=== PATIENT | female | born 1955 | race Caucasian/White ===

== ENCOUNTER 2019-11-20 09:10 | Emergency (ER) | payer MEDICARE, MEDICAID, SELFPAY ==
[2019-11-20] VITALS (10 sets, daily range): BP systolic 107–143; BP diastolic 43–78; PULSE 69–101; RESP 14–20; TEMP 36.5–37.1; O2SAT 94–98; BMI 21.0
--- NOTE | 2019-11-20 | CT_ITS ---
EXAMINATION: CT ABDOMEN AND PELVIS WITHOUT CONTRAST CLINICAL INFORMATION: Lower abdominal pain, nausea and vomiting, history of Crohn's disease. COMPARISON: CT scan of the abdomen and pelvis dated 11/02/2019. TECHNIQUE: Multidetector volumetric imaging was performed from the superior aspect of the liver through the pubic symphysis. Sagittal and coronal reformatted images were obtained on the technologist's workstation. Lack of intravenous and oral contrast limits visceral evaluation. This CT examination was performed using dose optimization techniques as appropriate, variously including the following: *Automated exposure control *Adjustment of mA and/or kV according to patient size (this includes techniques or standardized protocols for targeted exams where dose is matched to indication/reason for exam; i.e. extremities or head) *Use of iterative reconstruction technique DLP: 339 mGy-cm FINDINGS: LUNG BASES: Moderate elevation of the right hemidiaphragm without significant change. Right basilar linear atelectasis versus scarring posteriorly without significant change. Bibasilar emphysema is unchanged. No significant pleural or pericardial effusions. LIVER, GALLBLADDER, AND BILIARY TREE: No hepatic abnormality. Status post cholecystectomy. PANCREAS: Unremarkable. SPLEEN: Unremarkable. ADRENAL GLANDS: Unremarkable. KIDNEYS AND URETERS: Right kidney shows the previously seen 0.5 cm calculus at the level the right renal pelvis is now positioned at the level of the right inferior calyx. Smaller calculi are not significantly changed. Renal cysts bilaterally, left greater than right are not as well-visualized. Calcification in the upper pole the left kidney is not significantly changed. No hydroureteronephrosis bilaterally. BLADDER: Unremarkable. GASTROINTESTINAL TRACT: The stomach and small bowel unremarkable. Post surgical changes are seen at the ileocolonic anastomosis in the lateral right abdomen without significant change. No evidence for leak or obstruction is seen. The remainder the colon is unremarkable distally to the rectum. ABDOMINAL WALL: Small fat-containing umbilical hernia without interval change. LYMPH NODES: Normal. VASCULAR: Unremarkable. PELVIC VISCERA: Status post hysterectomy. OSSEOUS STRUCTURES: L5-S1 is transitional with partial sacralization of L5, left greater than right. Multilevel degenerative changes, most pronounced at L4-L5 with severe degenerative disc disease. Superior endplate compression deformities at T10, T11 and L2 have not significantly changed. IMPRESSION: 1. No significant acute bowel abnormality or interval change. 2. The previously seen 0.5 cm right intrarenal calculus has migrated from the right renal pelvis to the right inferior calyx without associated abnormality. Other nonobstructing intrarenal calculi/calcifications are not significant change. The patient's known bilateral renal cysts are noted as well-visualized on this study without intravenous contrast. 3. Thoracolumbar spine findings have not significantly changed. No new/acute abnormality. 4. Small fat-containing umbilical hernia without associated abnormality.
--- NOTE | 2019-11-20 | CT_ITS ---
EXAMINATION: CT HEAD WITHOUT CONTRAST CLINICAL INFORMATION: Confusion. COMPARISON: None available. TECHNIQUE: Contiguous axial imaging was performed from the skull base to vertex without intravenous administration of contrast. DLP: 666 mGy-cm This CT examination was performed using dose optimization techniques as appropriate, variously including the following: *Automated exposure control. *Adjustment of mA and/or kV according to patient size (this includes techniques or standardized protocols for targeted exams where dose is matched to indication/reason for exam; i.e. extremities or head). *Use of iterative reconstruction technique. FINDINGS: There is no evidence of acute intracranial hemorrhage or edematous territorial infarction. Mild basal ganglia mineralization. A few foci of hypoattenuation in the periventricular and deep white matter are consistent with mild microangiopathy. Wynn-white matter differentiation is preserved. Proportional prominence of the ventricles and sulcal spaces. No evidence for obstructive hydrocephalus. No abnormal mass effect or midline shift. No extra-axial fluid collections. No acute soft tissue or osseous abnormalities. Moderate degenerative arthropathy of the temporomandibular joints. The mastoid air cells and paranasal sinuses are clear. Bilateral lens extractions. IMPRESSION: 1. No evidence of acute intracranial hemorrhage or edematous territorial infarction. 2. Mild underlying microangiopathy.
--- NOTE | 2019-11-20 09:58 | XR_ITS ---
EXAMINATION: XR CHEST CLINICAL INFORMATION: Cough. COMPARISON: Chest radiographs dated 11/02/[address] scan dated 06/15/2019. TECHNIQUE: Frontal view of the chest was obtained. FINDINGS: There is persistent mild to moderate elevation of the right hemidiaphragm without definite change. The lungs are clear. The heart and mediastinal structures are unremarkable. IMPRESSION: Stable chest. No acute cardiopulmonary process.
--- NOTE | 2019-11-20 09:58 | ECG_ITS ---
Test Reason : ABDOMINAL PAIN Blood Pressure : / mmHG Vent. Rate : 088 BPM Atrial Rate : 088 BPM P-R Int : 116 ms QRS Dur : 082 ms QT Int : 396 ms P-R-T Axes : -21 116 078 degrees QTc Int : 479 ms Poor data quality, interpretation may be adversely affected Normal sinus rhythm Right axis deviation Nonspecific ST abnormality Abnormal ECG When compared with ECG of 02-NOV-2019 13:15, No significant change was found Referred By: Generic ED Physician Electronically Signed By:SHAVON MUNOZ
[2019-11-20] MEDS: ondansetron HCL 4 MG/2 ML VIAL IVPUSH ×3 (10:04→23:15)
[2019-11-20 10:06] LABS: MANUAL DIFF FLAG NO
[2019-11-20 10:08] LABS: Basophils Percent Auto 0.6 % (0-2); Eosinophils Absolute Auto 0.1 X10*3/uL (0.0-0.4); Hematocrit 39.4 % (37-47); Hemoglobin 13.3 g/dl (12.0-16.0); Imm Gran Abs Auto 0.04 X10*3/uL (0.00-0.03); Imm Gran Pct Auto 0.6 % (0.0-0.4); Lymphocytes Percent Auto 16.5 % (20-40); Mean Corpuscular HGB Conc 33.8 g/dl (31.0-35.0); Mean Corpuscular Hemoglobin 33.3 pg (27.0-33.0); Mean Corpuscular Volume 98.7 fL (80-98); Mean Platelet Volume 9.9 fL (9.4-12.3); Monocytes Absolute Auto 0.8 X10*3/uL (0.1-1.2); Monocytes Percent Auto 12.7 % (2-11); Neutrophils Absolute Auto 4.3 X10*3/uL (2.0-8.3); Neutrophils Percent Auto 68.6 % (45-73); Platelet Count 298 X10*3/uL (160-400); Red Blood Count 3.99 X10*6/uL (4.20-5.50); Red Cell Distribution Width 13.3 % (11.0-16.0); White Blood Count 6.3 X10*3/uL (4.8-10.8)
--- NOTE | 2019-11-20 10:38 | PC.NURSE ---
PT ALERT AND ORIENTED X4. SKIN WPD. RESPIRATIONS EVEN AND NON LABORED.REPORTS DIFFUSE ABD PAIN. TENDER OVER LUQ, EPIGATRIC REGION, LLQ, RLQ. ALSO REPORTS FEELING NAUSEOUS AND WEAK. NEUROS INTACT. IV ACCESS OBTAINED AND LABS SENT. VSS. SINUS TACH, LOW 100S ON MONITOR. PT REPORTS FALLING 4 TIMES OVER LAST 4 DAYS; STATES SHE FELL D/T LEGS GAVE OUT. REPORTS EACH FALL WAS WITNESSED BY GRANDDAUGHTER. DENIES HITTING HEAD OR LOC. DENIES ANY INJURIES FROM FALL. AWAITING INTIAL ED EVAL.
[2019-11-20 10:40] LABS: Alanine Aminotransferase 12 U/L (0-31); Albumin Level 3.6 g/dL (3.5-5.0); Alkaline Phosphatase 57 U/L (39-117); Anion Gap 16 (12-20); Aspartate Amino Transferase 25 U/L (5-31); Bilirubin Direct 0.3 mg/dL (0.0-0.5); Bilirubin Total 0.6 mg/dL (0.0-1.0); Blood Urea Nitrogen 21 mg/dL (9-16); Calcium 9.3 mg/dL (8.4-10.2); Carbon Dioxide 26 mmol/L (22-29); Chloride 103 mmol/L (96-108); Creatinine Clr Calc Pharmacy 28.3; Estimated Glomerular Filt Rate 31; Glucose Random 105 mg/dL (60-115); Lipase 22 U/L (8-78); Potassium 3.1 mmol/l (3.3-5.1); Sodium 142 mmol/L (135-145)
[2019-11-20 10:47] LABS: Troponin-I High Sensitivity 5.3 ng/L (<3.5-17.0)
[2019-11-20 10:48] LABS: MANUAL DIFF FLAG NO
[2019-11-20 10:51] LABS: Basophils Absolute Auto 0.1 X10*3/uL (0.0-0.2); Basophils Percent Auto 0.7 % (0-2); Eosinophils Absolute Auto 0.1 X10*3/uL (0.0-0.4); Eosinophils Percent Auto 0.7 % (0-4); Hematocrit 38.7 % (37-47); Hemoglobin 12.7 g/dl (12.0-16.0); Imm Gran Abs Auto 0.03 X10*3/uL (0.00-0.03); Imm Gran Pct Auto 0.4 % (0.0-0.4); Lymphocytes Absolute Auto 1.2 X10*3/uL (1.2-4.9); Lymphocytes Percent Auto 16.6 % (20-40); Mean Corpuscular HGB Conc 32.8 g/dl (31.0-35.0); Mean Corpuscular Hemoglobin 32.3 pg (27.0-33.0); Mean Corpuscular Volume 98.5 fL (80-98); Mean Platelet Volume 9.6 fL (9.4-12.3); Monocytes Absolute Auto 0.9 X10*3/uL (0.1-1.2); Neutrophils Percent Auto 69.6 % (45-73); Platelet Count 283 X10*3/uL (160-400); Red Blood Count 3.93 X10*6/uL (4.20-5.50); Red Cell Distribution Width 13.4 % (11.0-16.0); White Blood Count 7.2 X10*3/uL (4.8-10.8)
--- NOTE | 2019-11-20 11:58 | ED_ITS ---
HPI - Nausea/Vomiting/Diarrhea General Chief complaint: Nausea/Vomiting/Diarrhea Stated complaint: NAUSEA/VOMITING/CHILLS X'S 2 DAYS,RECENT -COVID RE Time Seen by Provider: 11/20/19 11:43 Source: patient and family History of Present Illness HPI Narrative: 64-year-old female with a PMHx Crohn's, colitis, COPD, emphysema, osteoporosis, Stenotrophomonas maltophilia c/o nausea, vomiting, diarrhea, diffuse abdominal discomfort, poor p.o. intake, generalized weakness x4 days. Also reports multiple falls at home on Wednesday due to legs giving out. Denies head trauma or LOC. Patient lives with granddaughter who helped get her up. Per granddaughter patient has been more confused at home, did not know who she was. Denies CP, SOB, constipation, fever, chills MD elicited complaint: nausea, vomiting, diarrhea and abdominal pain Pertinent past history: anorexia Onset (ago): day(s) (4) Associated nausea: Yes Associated abdominal pain: Yes Location of pain: diffuse Severity: moderate Quality: cramping Exacerbating factors: eating Associated symptoms: nausea/vomiting Related Data Home Medications Medication Instructions Recorded Confirmed azathioprine 50 mg tablet 100 mg PO DAILY 11/14/19 11/14/19 azithromycin 500 mg tablet 500 mg PO DAILY 11/14/19 11/14/19 budesonide 3 mg 9 mg PO DAILY 11/14/19 11/14/19 capsule,delayed,extended release cefuroxime axetil 500 mg tablet 500 mg PO Q12H 11/14/19 11/14/19 ciprofloxacin HCl 500 mg tablet 500 mg PO BID 11/14/19 11/14/19 citalopram 20 mg tablet 20 mg PO DAILY 11/14/19 11/14/19 clonazepam 1 mg tablet 1 mg PO TID PRN 11/14/19 11/14/19 cyanocobalamin (vitamin B-12) 1,000 mcg IM 11/14/19 11/14/19 1,000 mcg/mL injection solution gabapentin 300 mg capsule mg PO PRN 11/14/19 11/14/19 glycopyrrolate 9 mcg-formoterol 2 puff INHALATION BID 11/14/19 11/14/19 4.8 mcg HFA aerosol inhaler metoprolol succinate 100 mg 100 mg PO BID 11/14/19 11/14/19 tablet,extended release 24 hr niacinamide 500 mg tablet 500 mg PO BID 11/14/19 11/14/19 omeprazole 20 mg capsule,delayed 20 mg PO DAILY 11/14/19 11/14/19 release ondansetron 8 mg disintegrating 8 mg PO TID 11/14/19 11/14/19 tablet oxycodone 15 mg tablet 15 mg PO QID PRN 11/14/19 11/14/19 trazodone 50 mg tablet 50 mg PO BEDTIME 11/14/19 11/14/19 Allergies Allergy/AdvReac Type Severity Reaction Status Date / Time furosemide [From LASIX] Allergy Intermediate SWEATING Verified 11/20/19 09:15 lorazepam [LORAZEPAM] Allergy Intermediate RESTLESS Verified 11/20/19 09:15 LEG prochlorperazine Allergy Intermediate RESTLESS Verified 11/20/19 09:15 [From COMPAZINE] LEG Sulfa (Sulfonamide Allergy Unknown UNK Verified 11/20/19 09:15 Antibiotics) [SULFA (SULFONAMIDE ANTIBIOTICS)] Sulfa Drugs Allergy Unknown Unknown Uncoded 11/20/19 09:15 Review of Systems Review of Systems: Yes all other systems are reviewed and are negative Constitutional: Constitutional: Reports as per HPI, Reports chills, Denies fever(s), Reports frequent falls, Denies headache(s), Reports malaise and Reports weakness Eyes: Eyes: Reports as per HPI ENT: Reports system reviewed and no additional complaints, except as documented, Reports as per HPI and Denies headache(s) Cardiovascular: Cardiovascular: Denies syncope, Denies Loss of Consciousness and Denies dyspnea Respiratory: Respiratory: Reports cough (chronic) and Denies dyspnea Gastrointestinal: Gastrointestinal: Reports abdominal pain, Denies constipation, Reports GI cramping, Reports diarrhea, Reports nausea and Reports vomiting Genitourinary: Genitourinary: Denies dysuria Musculoskeletal: Musculoskeletal: Denies numbness and Denies tingling Neurologic: Reports Abnormal speech present, Denies syncope, Reports frequent falls, Denies headache(s), Denies numbness, Denies tingling and Reports weakness PMFSH Past Medical History Attestation statement: The following information was validated with the patient. Medical History (Updated 11/20/19 @ 16:30 by KARLENE Campbell) Acute Crohn's disease Colitis COPD (chronic obstructive pulmonary disease) Emphysema of lung Infection due to Stenotrophomonas maltophilia Osteoporosis Surgical History (Updated 11/20/19 @ 09:29 by Mellissa Fernandez) History of bowel resection Hx of cholecystectomy S/P complete hysterectomy Social History Social History Smoking Status: Former smoker Substance Use Type: Marijuana Substance Use Frequency: Weekly Advance Directives: No Advance Directives Information Provided: Yes Physical Exam Vital Signs and I&O and Narrative: Vital Signs and I&O: Vital Signs Temp 98.5 F 11/20/19 16:00 Pulse 79 11/20/19 16:00 Resp 15 11/20/19 16:00 BP 119/58 L 11/20/19 16:00 Pulse Ox 94 11/20/19 16:00 Intake & Output 11/19/19 11/20/19 11/20/19 18:59 06:59 18:59 Intake Total 1000 / 1000 Balance 1000 / 1000 Weight 53.977 kg Intake: Intake, IV Amoun t 1000 / 1000 0.9 % Sodium C hloride 1,000 ml 1000 / 1000 @ 999 mls/hr I VCONT .Q1H1M [facility] Rx#:[id number] Body Mass Index 21.0 Const: General: cooperative and no acute distress Orientation/consciousness: patient oriented x3 HENMT: Head: Yes normal to inspection Eyes: General: appearance normal, both eyes and all related structures Pupils: Equal, round and reactive pupils present EOM: EOMs intact bilaterally Neck: Neck: Yes normal visual inspection Chest: Chest palpation & inspection: normal inspection of the chest Resp: Effort & Inspection: normal respiratory effort, no audible wheezes, no cough, not labored, no respiratory distress and no use of accessory muscles Auscultation: clear to auscultation bilaterally, no crackles, no rales and no rh onchi Cardio: Jugular venous distension: no JVD Rate: regular rate Rhythm: regular rhythm Heart sounds: S1 normal heart sound present and S2 normal heart sound present GI: Inspection: Yes normal to inspection Palpation (GI): Soft to palpation and Tenderness to palpation present (GI) (lower abdomen) Neuro: General: patient oriented x3 Cranial nerves: Yes CN's II-XII intact bilaterally and Yes Equal, round and reactive pupils present Cognition (Neuro): normal cognition Speech: Abnormal speech present Motor exam (neuro): 5/5 motor strength present throughout Pupils: Normal pupillary reactivity/response: bilateral Course Reevaluation(s) Reevaluation #1: HERVE creatinine 1.66, potassium slightly low 3.1 > likely from dehydration/ dry heaving Troponin 5.3> will obtain for repeat 1249-- CXR unreamrkable 1611-- head CT without acute findings, CT AP without acute abnormality plan to admit for dehydration/HERVE and PT eval 1716-- spoke to hospitalist about patient. They would like repeat Chem 7 prior to admission. If HERVE resolved will obtain PT/case management consult MDM - Nausea/Vomiting/Diarrhea MDM Narrative Medical decision making narrative: 64-year-old female with a PMHx Crohn's, colitis, COPD, emphysema, osteoporosis, Stenotrophomonas maltophilia c/o nausea, vomiting, diarrhea, diffuse abdominal discomfort, poor p.o. intake, generalized weakness x4 days. On exam VSS, NAD/well-appearing, abdomen soft diffusely tender. Dry mucous membranes. Concern for SBO/colitis vs diverticulitis or appendicitis. Concern for dehydration. Rule out infectious etiology. R/o subacute CVA although patient A&O x3 and neurologically intact at present plan: EKG, labs, CXR, UA, head/ AP CT, IVF, admission Lab Data Result diagrams: 11/20/19 10:44 11/20/19 09:53 Labs: Lab Results 11/20/19 11/20/19 11/20/19 Range/Units 09:53 09:53 10:04 WBC 6.3 (4.8-10.8) X10*3/uL RBC 3.99 L (4.20-5.50) X10*6/uL Hgb 13.3 (12.0-16.0) g/dl Hct 39.4 (37-47) % MCV 98.7 H (80-98) fL MCH 33.3 H (27.0-33.0) pg MCHC 33.8 (31.0-35.0) g/dl RDW 13.3 (11.0-16.0) % Plt Count 298 (160-400) X10*3/uL MPV 9.9 (9.4-12.3) fL Immature Gran % (Auto) 0.6 H (0.0-0.4) % Neut % (Auto) 68.6 (45-73) % Lymph % (Auto) 16.5 L (20-40) % [place] % (Auto) 12.7 H (2-11) % Eos % (Auto) 1.0 (0-4) % Baso % (Auto) 0.6 (0-2) % Neut # (Auto) 4.3 (2.0-8.3) X10*3/uL Lymph # (Auto) 1.0 L (1.2-4.9) X10*3/uL [place] # (Auto) 0.8 (0.1-1.2) X10*3/uL Eos # (Auto) 0.1 (0.0-0.4) X10*3/uL Baso # (Auto) 0.0 (0.0-0.2) X10*3/uL Abs Immat Gran (auto) 0.04 H (0.00-0.03) X10*3/uL Absolute Nucleated RBC 0.000 (0.0-0.012) X10*3/uL Nucleated RBC % (auto) 0.0 (0.0-0.2) /100WBC Hold Blue Top SEE NOTE Sodium 142 (135-145) mmol/L Potassium 3.1 L (3.3-5.1) mmol/l Chloride 103 (96-108) mmol/L Carbon Dioxide 26 (22-29) mmol/L Anion Gap 16 (12-20) BUN 21 H (9-16) mg/dL Creatinine 1.66 H (0.5-1.4) mg/dL Estim Creat Clear Calc 28.3 Estimated GFR 31 Random Glucose 105 (60-115) mg/dL Calcium 9.3 (8.4-10.2) mg/dL Magnesium (1.6-2.6) mg/dL Total Bilirubin 0.6 (0.0-1.0) mg/dL Direct Bilirubin 0.3 (0.0-0.5) mg/dL AST 25 (5-31) U/L ALT 12 (0-31) U/L Alkaline Phosphatase 57 (39-117) U/L Troponin I High Sens (<3.5-17.0) ng/L Total Protein 6.0 L (6.5-8.0) g/dL Albumin 3.6 (3.5-5.0) g/dL Lipase 22 (8-78) U/L Urine Color Urine Appearance Urine pH (5.0-8.0) Ur Specific [place] (1.005-1.025) Urine Protein (NEG-TRACE) MG/DL Urine Glucose (UA) (NEG) MG/DL Urine Ketones (NEG) MG/DL Urine Blood (NEG) Urine Nitrite (NEG) Ur Leukocyte Esterase (NEG) 11/20/19 11/20/19 11/20/19 Range/Units 10:04 10:44 12:45 WBC 7.2 (4.8-10.8) X10*3/uL RBC 3.93 L (4.20-5.50) X10*6/uL Hgb 12.7 (12.0-16.0) g/dl Hct 38.7 (37-47) % MCV 98.5 H (80-98) fL MCH 32.3 (27.0-33.0) pg MCHC 32.8 (31.0-35.0) g/dl RDW 13.4 (11.0-16.0) % Plt Count 283 (160-400) X10*3/uL MPV 9.6 (9.4-12.3) fL Immature Gran % (Auto) 0.4 (0.0-0.4) % Neut % (Auto) 69.6 (45-73) % Lymph % (Auto) 16.6 L (20-40) % [place] % (Auto) 12.0 H (2-11) % Eos % (Auto) 0.7 (0-4) % Baso % (Auto) 0.7 (0-2) % Neut # (Auto) 5.0 (2.0-8.3) X10*3/uL Lymph # (Auto) 1.2 (1.2-4.9) X10*3/uL [place] # (Auto) 0.9 (0.1-1.2) X10*3/uL Eos # (Auto) 0.1 (0.0-0.4) X10*3/uL Baso # (Auto) 0.1 (0.0-0.2) X10*3/uL Abs Immat Gran (auto) 0.03 (0.00-0.03) X10*3/uL Absolute Nucleated RBC 0.000 (0.0-0.012) X10*3/uL Nucleated RBC % (auto) 0.0 (0.0-0.2) /100WBC Hold Blue Top Sodium (135-145) mmol/L Potassium (3.3-5.1) mmol/l Chloride (96-108) mmol/L Carbon Dioxide (22-29) mmol/L Anion Gap (12-20) BUN (9-16) mg/dL Creatinine (0.5-1.4) mg/dL Estim Creat Clear Calc Estimated GFR Random Glucose (60-115) mg/dL Calcium (8.4-10.2) mg/dL Magnesium (1.6-2.6) mg/dL Total Bilirubin (0.0-1.0) mg/dL Direct Bilirubin (0.0-0.5) mg/dL AST (5-31) U/L ALT (0-31) U/L Alkaline Phosphatase (39-117) U/L Troponin I High Sens 5.3 4.5 (<3.5-17.0) ng/L Total Protein (6.5-8.0) g/dL Albumin (3.5-5.0) g/dL Lipase (8-78) U/L Urine Color Urine Appearance Urine pH (5.0-8.0) Ur Specific [place] (1.005-1.025) Urine Protein (NEG-TRACE) MG/DL Urine Glucose (UA) (NEG) MG/DL Urine Ketones (NEG) MG/DL Urine Blood (NEG) Urine Nitrite (NEG) Ur Leukocyte Esterase (NEG) 11/20/19 11/20/19 Range/Units 12:45 12:45 WBC (4.8-10.8) X10*3/uL RBC (4.20-5.50) X10*6/uL Hgb (12.0-16.0) g/dl Hct (37-47) % MCV (80-98) fL MCH (27.0-33.0) pg MCHC (31.0-35.0) g/dl RDW (11.0-16.0) % Plt Count (160-400) X10*3/uL MPV (9.4-12.3) fL Immature Gran % (Auto) (0.0-0.4) % Neut % (Auto) (45-73) % Lymph % (Auto) (20-40) % [place] % (Auto) (2-11) % Eos % (Auto) (0-4) % Baso % (Auto) (0-2) % Neut # (Auto) (2.0-8.3) X10*3/uL Lymph # (Auto) (1.2-4.9) X10*3/uL [place] # (Auto) (0.1-1.2) X10*3/uL Eos # (Auto) (0.0-0.4) X10*3/uL Baso # (Auto) (0.0-0.2) X10*3/uL Abs Immat Gran (auto) (0.00-0.03) X10*3/uL Absolute Nucleated RBC (0.0-0.012) X10*3/uL Nucleated RBC % (auto) (0.0-0.2) /100WBC Hold Blue Top Sodium (135-145) mmol/L Potassium (3.3-5.1) mmol/l Chloride (96-108) mmol/L Carbon Dioxide (22-29) mmol/L Anion Gap (12-20) BUN (9-16) mg/dL Creatinine (0.5-1.4) mg/dL Estim Creat Clear Calc Estimated GFR Random Glucose (60-115) mg/dL Calcium (8.4-10.2) mg/dL Magnesium 1.6 (1.6-2.6) mg/dL Total Bilirubin (0.0-1.0) mg/dL Direct Bilirubin (0.0-0.5) mg/dL AST (5-31) U/L ALT (0-31) U/L Alkaline Phosphatase (39-117) U/L Troponin I High Sens (<3.5-17.0) ng/L Total Protein (6.5-8.0) g/dL Albumin (3.5-5.0) g/dL Lipase (8-78) U/L Urine Color YELLOW Urine Appearance HAZY Urine pH 6.0 (5.0-8.0) Ur Specific [place] >= 1.030 H (1.005-1.025) Urine Protein TRACE (NEG-TRACE) MG/DL Urine Glucose (UA) NEG (NEG) MG/DL Urine Ketones 15 (NEG) MG/DL Urine Blood NEG (NEG) Urine Nitrite NEG (NEG) Ur Leukocyte Esterase NEG (NEG) Discharge Plan Discharge Clinical Impression: HERVE (acute kidney injury), Acute dehydration Prescriptions: No Action citalopram 20 mg tablet 20 mg PO DAILY RF: 0 ondansetron 8 mg tablet,disintegrating 8 mg PO TID RF: 0 gabapentin 300 mg capsule PO PRNRF: 0 cefuroxime axetil 500 mg tablet 500 mg PO Q12H RF: 0 omeprazole 20 mg capsule,delayed release(DR/EC) 20 mg PO DAILY RF: 0 cyanocobalamin (vitamin B-12) 1,000 mcg/mL solution 1,000 mcg IM RF: 0 trazodone 50 mg tablet 50 mg PO BEDTIME RF: 0 ciprofloxacin HCl 500 mg tablet 500 mg PO BID RF: 0 oxycodone 15 mg tablet 15 mg PO QID PRNRF: 0 clonazepam 1 mg tablet 1 mg PO TID PRN (Reason: anxiety) RF: 0 Bevespi Aerosphere 9-4.8 mcg HFA aerosol inhaler 2 puff inhalation BID RF: 0 niacinamide 500 mg tablet 500 mg PO BID RF: 0 azithromycin 500 mg tablet 500 mg PO DAILY RF: 0 azathioprine 50 mg tablet 100 mg PO DAILY RF: 0 budesonide 3 mg capsule,delayed,extend.release 9 mg PO DAILY RF: 0 metoprolol succinate 100 mg tablet extended release 24 hr 100 mg PO BID RF: 0
--- NOTE | 2019-11-20 12:05 | PC.NURSE ---
primary critical care nurse/granddaughter, Lizz to be called with questions and updates at [phone]
--- NOTE | 2019-11-20 12:20 | PC.NURSE ---
per pt's granddaughter, leonard, pt has had multiple episodes of severe confusion during which she couldn't recall where she was and was recalling conversations that never occured. neuros currently intact. hernesto kahn made aware of confusion; plan for head ct. yasmine also states pt recently diagnosed with uti and unsure if pt has been taking meds as prescribed. urine sample to be sent when obtained.
[2019-11-20 13:19] LABS: Magnesium 1.6 mg/dL (1.6-2.6)
[2019-11-20 13:24] LABS: Glucose Urine UA NEG (NEG); Leukocyte Esterase Urine NEG (NEG); Nitrite Urine NEG (NEG); Specific Gravity - Urine >= 1.030 (1.005-1.025); Urine Blood NEG (NEG); Urine Ketones 15 MG/DL (NEG); Urine Protein TRACE MG/DL (NEG-TRACE)
[2019-11-20 13:26] LABS: Troponin-I High Sensitivity 4.5 ng/L (<3.5-17.0)
[2019-11-20 13:28] LABS: Appearance Urine HAZY; Color Urine YELLOW
[2019-11-20] MEDS: 0.9 % Sodium Chloride 1,000 ML 999 ML IVCONT ×2 (13:29→16:57)
[2019-11-20] MEDS: diphenhydrAMINE HCL 50 MG/ML VIAL 12.5 MG IVPUSH (13:30)
[2019-11-20] MEDS: oxyCODONE HCl Immed Release 5 MG TABLET PO (16:57)
[2019-11-20 18:35] LABS: Anion Gap 14 (12-20); Blood Urea Nitrogen 19 mg/dL (9-16); Calcium 8.3 mg/dL (8.4-10.2); Carbon Dioxide 23 mmol/L (22-29); Chloride 108 mmol/L (96-108); Creatinine Clr Calc Pharmacy 39.8; Estimated Glomerular Filt Rate 46; Glucose Random 88 mg/dL (60-115); Potassium 2.8 mmol/l (3.3-5.1); Sodium 142 mmol/L (135-145)
--- NOTE | 2019-11-20 19:17 | PC.NURSE ---
Patient will stay overnight for case management. Called pharmacy for med rec.
[2019-11-20] MEDS: Magnesium Oxide 400 MG TABLET PO (21:53)
[2019-11-20] MEDS: traZODone HCL 50 MG TABLET PO (21:54)
[2019-11-20] MEDS: Gabapentin 300 MG CAPSULE 900 MG PO (21:54)
[2019-11-20] MEDS: Metoprolol Succinate ER 100 MG TAB.ER.24H PO (21:55)
[2019-11-20] MEDS: oxyCODONE HCl Immed Release 15 MG TABLET PO (22:09)
[2019-11-20] MEDS: Potassium Chloride/H20 10 MEQ/100 ML PIGGYBACK 100 MEQ IV (23:59)
[2019-11-21] MEDS: Potassium Chloride/H20 10 MEQ/100 ML PIGGYBACK 100 MEQ IV ×2 (01:45→03:23)
[2019-11-21 01:46] VITALS: BP 116/79; PULSE 71; RESP 15; TEMP 36.7; O2SAT 93
[2019-11-21 04:00] VITALS: BP 111/60; PULSE 71; RESP 13; TEMP 36.6; O2SAT 94
[2019-11-21] MEDS: oxyCODONE HCl Immed Release 15 MG TABLET PO ×2 (04:33→10:33)
[2019-11-21] MEDS: clonazePAM 1 MG TABLET PO (04:34)
[2019-11-21 06:10] VITALS: BP 114/50; PULSE 71; RESP 12; O2SAT 92
[2019-11-21 07:42] VITALS: BP 114/50; PULSE 71; O2SAT 92
[2019-11-21 08:15] VITALS: BP 102/60; PULSE 75; RESP 16; TEMP 36.9; O2SAT 94
[2019-11-21 08:18] VITALS: BP 102/60; PULSE 71
[2019-11-21] MEDS: Metoprolol Succinate ER 100 MG TAB.ER.24H PO (08:18)
[2019-11-21] MEDS: Gabapentin 300 MG CAPSULE 600 MG PO (08:19)
[2019-11-21] MEDS: Potassium Chloride ER 20 MEQ TAB.ER.PRT PO (08:19)
[2019-11-21] MEDS: Escitalopram Oxalate 10 MG TABLET PO (08:19)
[2019-11-21] MEDS: Aspirin Enteric Coated 81 MG TABLET.DR PO (08:19)
[2019-11-21] MEDS: Magnesium Oxide 400 MG TABLET PO (08:19)
[2019-11-21 08:41] LABS: Anion Gap 12 (12-20); Blood Urea Nitrogen 17 mg/dL (9-16); Calcium 8.5 mg/dL (8.4-10.2); Carbon Dioxide 24 mmol/L (22-29); Chloride 111 mmol/L (96-108); Estimated Glomerular Filt Rate 59; Glucose Random 89 mg/dL (60-115); Potassium 3.5 mmol/l (3.3-5.1); Sodium 143 mmol/L (135-145)
[2019-11-21] MEDS: azaTHIOprine 50 MG TABLET 100 MG PO (08:44)
[2019-11-21] MEDS: Calcitonin,Salmon,Synth Nasal 3.7 ML BOTTLE 1 SPRAY NOSTRIL-B (08:44)
--- NOTE | 2019-11-21 11:07 | MHC.CM.ED ---
per pt's request a ref. has been made to [facility]. pt is being dc'd home c [facility] for nsg and home pt. rn and md in the e.d. are aware of this dc plan. cm to cont. to follow
== END 2019-11-21 10:44 | disposition home or self-care (01) ==
PROVIDERS: Physician Assistant; Student in an Organized Health Care Education/Training Program; Emergency Provider Physician Assistant Medical; PCP Internal Medicine
DX: N17.9 Acute kidney failure, unspecified (principal); E86.0 Dehydration; R11.2 Nausea with vomiting, unspecified; F12.90 Cannabis use, unspecified, uncomplicated; Z87.891 Personal history of nicotine dependence; Z79.899 Other long term (current) drug therapy
CPT/HCPCS: 36415; 70450; 71045; 74176; 80048; 80076; 81003; 83690; 83735; 84484; 85025; 93005; 93010; 96361; 96365; 96366; 96375; 96376; 97162; 99285; J1200; J2405

== ENCOUNTER → 2019-12-07 11:30 | Outpatient (BNVA) | payer MEDICARE, MEDICAID, SELFPAY | PROVIDERS: PCP Internal Medicine; Visit Provider Hospitalist | DX: J44.9 Chronic obstructive pulmonary disease, unspecified (principal); G47.33 Obstructive sleep apnea (adult) (pediatric); K52.9 Noninfective gastroenteritis and colitis, unspecified; Z99.89 Dependence on other enabling machines and devices | CPT/HCPCS: 99214 ==

== ENCOUNTER → 2020-06-17 13:54 | Outpatient (BNVA) | payer MEDICARE, MEDICAID, SELFPAY | PROVIDERS: PCP Internal Medicine; Visit Provider Hospitalist | DX: J41.8 Mixed simple and mucopurulent chronic bronchitis (principal); J96.11 Chronic respiratory failure with hypoxia; G47.33 Obstructive sleep apnea (adult) (pediatric); Z99.89 Dependence on other enabling machines and devices | CPT/HCPCS: 96372; 99212; J2930 ==

== ENCOUNTER 2020-07-09 08:50 | Outpatient (REF) | payer MEDICARE, MEDICAID, SELFPAY ==
--- NOTE | 2020-07-09 13:46 | PFT_ITS ---
INDICATION: Chronic bronchitis. SPIROMETRY: The FEV1 to FVC of 75% with an FEV1 of 1.51 L, which is 65% predicted, and an FVC of 2.03 L, which is 66% predicted. No significant response to bronchodilators noted. The patient does have evidence of small airways disease. Maximum voluntary ventilation 53% predicted. LUNG VOLUMES: Total lung capacity 75% predicted. Expiratory reserve volume is decreased to 13% predicted. DIFFUSION CAPACITY: DLCO 30% predicted. COMPARISONS: None. INTERPRETATION: There is a restrictive ventilatory defect consistent with restrictive lung disease. The patient does have evidence of emphysema, although she does not have a definitive obstruction on spirometry. The fact that she has a restrictive component is likely masking the obstructive process that she also has. In addition to that, she does have severe diffusion impairment secondary to underlying pulmonary vascular disease and parenchymal lung conditions. Should also correct for hemoglobin. Clinical correlation warranted. pEi Leiva MD MR/MODL / [id number]
== END 2020-07-09 08:51 | disposition home or self-care (01) ==
LOC: HO.RESP 08:50
PROVIDERS: PCP Internal Medicine; Visit Provider Hospitalist
DX: J41.8 Mixed simple and mucopurulent chronic bronchitis (principal); J96.11 Chronic respiratory failure with hypoxia; J98.4 Other disorders of lung
CPT/HCPCS: 94060; 94727; 94729; 99212

== ENCOUNTER → 2020-10-15 09:36 | Outpatient (BNVA) | payer MEDICARE, MEDICAID, SELFPAY | PROVIDERS: PCP Internal Medicine; Visit Provider Hospitalist | DX: Z01.811 Encounter for preprocedural respiratory examination (principal); J96.11 Chronic respiratory failure with hypoxia; G47.33 Obstructive sleep apnea (adult) (pediatric); J41.8 Mixed simple and mucopurulent chronic bronchitis; R13.10 Dysphagia, unspecified; Z79.899 Other long term (current) drug therapy; Z99.89 Dependence on other enabling machines and devices | CPT/HCPCS: 99212 ==

== ENCOUNTER → 2021-03-11 09:00 | Outpatient (BNVA) | payer MEDICARE, MEDICAID, SELFPAY | PROVIDERS: PCP Internal Medicine; Visit Provider Hospitalist | DX: Z01.811 Encounter for preprocedural respiratory examination (principal); J41.8 Mixed simple and mucopurulent chronic bronchitis; J96.11 Chronic respiratory failure with hypoxia; J98.4 Other disorders of lung; G47.33 Obstructive sleep apnea (adult) (pediatric); R13.10 Dysphagia, unspecified; Z99.89 Dependence on other enabling machines and devices | CPT/HCPCS: 99212 ==

== ENCOUNTER → 2021-08-11 10:22 | Outpatient (BNVA) | payer MEDICARE, MEDICAID, SELFPAY | PROVIDERS: PCP Internal Medicine; Visit Provider Hospitalist | DX: J98.4 Other disorders of lung (principal); J96.11 Chronic respiratory failure with hypoxia; G47.33 Obstructive sleep apnea (adult) (pediatric); J41.8 Mixed simple and mucopurulent chronic bronchitis; R13.10 Dysphagia, unspecified; Z99.89 Dependence on other enabling machines and devices | CPT/HCPCS: 99212 ==

== ENCOUNTER → 2022-04-15 10:13 | Outpatient (BNVA) | payer MEDICARE, MEDICAID, SELFPAY | PROVIDERS: PCP Student in an Organized Health Care Education/Training Program; Visit Provider Hospitalist | DX: J98.4 Other disorders of lung (principal); J96.11 Chronic respiratory failure with hypoxia; G47.33 Obstructive sleep apnea (adult) (pediatric); Z99.89 Dependence on other enabling machines and devices | CPT/HCPCS: 99212 ==

== ENCOUNTER 2022-07-03 21:25 | Inpatient (IN) | payer MEDICARE, MEDICAID, SELFPAY ==
[2022-07-03] VITALS (10 sets, daily range): BP systolic 116–218; BP diastolic 68–124; PULSE 90–112; RESP 15–33; TEMP 32–36.6; O2SAT 96–100; BMI 20.8; BMI 18.9
--- NOTE | ~2022-07-03 | CT_ITS ---
EXAMINATION: CT HEAD WITHOUT CONTRAST CT CERVICAL SPINE WITHOUT CONTRAST CLINICAL INFORMATION: Head injury. Trauma. COMPARISON: CT head from 11/20/2019. TECHNIQUE: Contiguous axial imaging was performed from the skull base to vertex without intravenous administration of contrast. Contiguous axial imaging was performed from the upper chest through the skull base without intravenous administration of contrast. Coronal and sagittal reformats were obtained at the acquisition workstation. This CT examination was performed using dose optimization techniques as appropriate, variously including the following: *Automated exposure control. *Adjustment of mA and/or kV according to patient size (this includes techniques or standardized protocols for targeted exams where dose is matched to indication/reason for exam; i.e. extremities or head). *Use of iterative reconstruction technique. DLP: 1000 mGy-cm FINDINGS: Head: There is no evidence of acute intracranial hemorrhage or edematous territorial infarction. Wynn-white matter differentiation is preserved. Scattered foci of hypoattenuation in the periventricular and deep white matter are consistent with mild to moderate microangiopathy. Proportional prominence of the ventricles and sulcal spaces without evidence of obstructive hydrocephalus. No abnormal mass effect or midline shift. No extra-axial fluid collections. The patient is intubated with orogastric tube in place. The orogastric tube is coiled within the pharynx. No acute soft tissue or osseous abnormalities. Layering fluid within the pharynx, presumably related to intubation. Mild mucosal thickening of the paranasal sinuses. The mastoid air cells and middle ear cavities are clear. Advanced right-sided and moderate left-sided degenerative arthropathy of the temporomandibular joints. Bilateral lens extractions. Cervical Spine: The atlantooccipital and atlantoaxial articulations remain well aligned. Moderate degenerative stepwise retrolisthesis of C3-C7. No evidence of acute fracture or subluxation. The vertebral body heights are maintained. Advanced degenerative disc disease from C3-T1 with associated disc-osteophyte complex formation. There appears to be at least mild spinal canal stenoses from C3-C7. Facet and uncovertebral joint arthropathy leads to osseous encroachment on the neural foramina from C3-T1. There is no prevertebral soft tissue swelling. The thyroid gland and remaining cervical soft tissues are within normal limits. Moderate centrilobular emphysema. No additional demonstrated abnormalities of the visualized lung apices.. CT/CT cervical spine wo IV con IMPRESSION: 1. No evidence of acute intracranial hemorrhage or edematous territorial infarction. Mild to moderate underlying microangiopathy and generalized cerebral volume loss. 2. No evidence of acute fracture or traumatic subluxation of the cervical spine. Advanced multilevel degenerative spondyloarthropathy of the cervical spine. Most notably on this limited exam without intrathecal contrast, there appears to be at least mild spinal canal stenoses from C3-C7.
--- NOTE | ~2022-07-03 | XR_ITS ---
EXAMINATION: XR KNEE, LEFT CLINICAL INFORMATION: Fall. COMPARISON: None available. TECHNIQUE: Four views of the left knee. FINDINGS: Bones and soft tissues are normal. No fracture or joint effusion. Alignment is anatomic. Joint spaces are well maintained. No abnormal soft tissue calcification. XR/XR knee LT 3V IMPRESSION: No acute fracture or dislocation.
--- NOTE | ~2022-07-03 | XR_ITS ---
EXAMINATION: XR CHEST CLINICAL INFORMATION: Post intubation COMPARISON: 11.20.2019 TECHNIQUE: Frontal view of the chest was obtained. FINDINGS: Endotracheal tube terminates 4.1 cm above the monica. Enteric tube courses through the stomach. Normal symmetric lung volumes. No parenchymal consolidation. No pleural effusion. No pneumothorax. Cardiomediastinal silhouette and pulmonary vascularity are within normal limits. No acute osseous abnormalities. XR/XR chest 1V IMPRESSION: Endotracheal tube terminates 4.1 cm above the monica.
--- NOTE | ~2022-07-03 | CT_ITS ---
EXAMINATION CT CHEST, ABDOMEN AND PELVIS WITHOUT CONTRAST CLINICAL INFORMATION: Trauma COMPARISON: CT abdomen/pelvis dated 11/20/2019 CT chest dated 06/15/2019 TECHNIQUE: Multidetector volumetric CT imaging of the chest, abdomen and pelvis was obtained without use of intravenous contrast. Coronal and sagittal reformats were reviewed. This CT examination was performed using dose optimization techniques as appropriate, variously including the following: *Automated exposure control *Adjustment of mA and/or kV according to patient size (this includes techniques or standardized protocols for targeted exams where dose is matched to indication/reason for exam; i.e. extremities or head) *Use of iterative reconstruction technique DLP: 225 mGy-cm. FINDINGS: CHEST LUNGS/PLEURA: Moderate emphysema. Basilar subsegmental atelectasis. No parenchymal consolidation. No pneumothorax. There is no pleural effusion. No pleural mass or thickening. Endotracheal tube terminates in the mid thoracic trachea. MEDIASTINUM/CORY: Normal heart size. No pericardial effusion. Great vessels normal caliber. Triple vessel coronary calcifications. CHEST WALL/AXILLA: Unremarkable. ABDOMEN/PELVIS HEPATOBILIARY: Liver normal in size, contour and morphology. No suspicious lesions. No intra or extrahepatic biliary dilation. Cholecystectomy. PANCREAS: Unremarkable. SPLEEN: Unremarkable. ADRENAL GLANDS: Unremarkable. KIDNEYS, URETERS AND BLADDER: Kidneys normal in size, axis and. Simple cysts in the left kidney are benign. No follow-up imaging recommended. No hydronephrosis. Stable 5 mm calculus in the right renal pelvis and 4 mm nonobstructive calculus in the lower pole of the right kidney. Punctate nonobstructive calculus in the anterior interpolar region of the left kidney. Ureters normal in course and caliber. Bladder decompressed by Evans catheter. GASTROINTESTINAL TRACT: No bowel obstruction or inflammation. Right hemicolectomy with intact ileocolic anastomosis in the right hemiabdomen. Enteric tube within the stomach. Scattered sigmoid colonic diverticula without evidence of diverticulitis. PELVIC VISCERA: Hysterectomy. No adnexal abnormalities. LYMPH NODES: No lymphadenopathy. PERITONEUM/BODY WALL: Unremarkable. VASCULAR STRUCTURES: Aorta atherosclerotic but normal caliber. OSSEOUS STRUCTURES No acute fractures. New but chronic superior endplate compression fracture at L1 with mild retropulsion of the posterosuperior cortex resulting in mild central canal stenosis. Stable minimal superior endplate compression fracture at T11. New but chronic appearing superior endplate compression fracture at T12. Stable mild compression deformity at L3 associated with a prominent superior endplate Schmorl's noted. Previous right femoral neck pinning. CT/CT abdomen pelvis wo IV con IMPRESSION: * No evidence of acute traumatic injury within the chest, abdomen or pelvis. * Moderate emphysema. * Bilateral nonobstructive intrarenal calculi. * Right hemicolectomy with intact ileocolic anastomosis in the right hemiabdomen. * Sigmoid colonic diverticulosis without evidence of diverticulitis. * New but chronic appearing superior endplate compression fractures at T12 and L1.
--- NOTE | ~2022-07-03 | XR_ITS ---
EXAMINATION: XR ELBOW, LEFT CLINICAL INFORMATION: Pain COMPARISON: None available. TECHNIQUE: AP, lateral, and oblique views of the left elbow. FINDINGS: The bones and soft tissues are normal. No fracture or joint effusion. Alignment is anatomic. Joint spaces are maintained. XR/XR elbow LT 2V IMPRESSION: No acute fracture or dislocation
--- NOTE | 2022-07-03 21:46 | ECG_ITS ---
Test Reason : FALL Blood Pressure : / mmHG Vent. Rate : 104 BPM Atrial Rate : 104 BPM P-R Int : 130 ms QRS Dur : 072 ms QT Int : 338 ms P-R-T Axes : 039 049 087 degrees QTc Int : 444 ms Poor data quality Sinus tachycardia Otherwise normal ECG When compared with ECG of 20-NOV-2019 10:48, Nonspecific T wave abnormality no longer evident in Anterior leads Referred By: Maddie Almeida Electronically Signed By:Isidro Conrad
--- NOTE | 2022-07-03 21:50 | ED.FALL ---
HPI - Fall General Chief Complaint: Fall Stated Complaint: unresponsive Time Seen by Provider: 07/03/22 21:33 History of Present Illness HPI Narrative: Patient is 67 years old with a history COPD. Baseline is on prednisone. History of inflammatory bowel disease. Is on azathioprine. Patient baseline is known narcotic pain medication presented today family heard and start patient was on the ground. Mental status was off. Not quite right. Patient keeps falling asleep. EMS arrived the patient Narcan. Patient woke up. No fever no chills. She has pain throughout her head her neck her back. Patient denies any diaphoresis. No new chest pain. Long history of smoking in the past Related Data Home Medications Medication Instructions Recorded Confirmed budesonide 3 mg 9 mg PO DAILY 11/14/19 07/09/20 capsule,delayed,extended release clonazepam 1 mg tablet 1 mg PO BID PRN anxiety 11/14/19 07/09/20 cyanocobalamin (vitamin B-12) 1,000 mcg IM QMONTH 11/14/19 07/09/20 1,000 mcg/mL injection solution gabapentin 300 mg capsule 600 mg PO DAILY 11/14/19 07/09/20 metoprolol succinate 100 mg 100 mg PO BID 11/14/19 07/09/20 tablet,extended release 24 hr niacinamide 500 mg tablet 500 mg PO BID 11/14/19 07/09/20 omeprazole 20 mg capsule,delayed 20 mg PO DAILY 11/14/19 07/09/20 release ondansetron 8 mg disintegrating 8 mg PO TID PRN Nausea And Vomiting 11/14/19 07/09/20 tablet oxycodone 15 mg tablet 15 mg PO QID PRN Pain 11/14/19 07/09/20 baclofen 20 mg tablet 20 mg PO TID PRN Pain 11/20/19 07/09/20 gabapentin 300 mg capsule 900 mg PO BEDTIME 11/20/19 07/09/20 magnesium oxide 400 mg PO BID 11/20/19 07/09/20 azathioprine 50 mg tablet 100 mg PO DAILY 12/07/19 07/09/20 albuterol sulfate 90 mcg/actuation 2 puff inhalation Q4H PRN wheezing 06/17/20 07/09/20 aerosol inhaler cholecalciferol (vitamin D3) 25 25 mcg PO BID 06/17/20 07/09/20 mcg (1,000 unit) capsule potassium chloride 20 mEq 20 meq PO DAILY 06/17/20 07/09/20 tablet,extended release citalopram 20 mg tablet 30 mg PO DAILY 04/15/22 Previous Rx's Medication Instructions Recorded walker #1 ea 11/21/19 diaper,brief,adult,disposable #90 ea 08/11/21 ([place] Choice Comfort Protect Adult Diaper Medium) cetirizine 10 mg tablet (Zyrtec) 10 mg PO DAILY 30 days #30 tabs 04/15/22 gabapentin 300 mg capsule See Rx Instructions PO BID 30 days 04/15/22 #150 caps Bevespi Aerosphere 9 mcg-4.8 mcg 2 puff inhalation BID #10.7 grams 06/15/22 HFA aerosol inhaler (glycopyrrolate-formoterol) Allergies Allergy/AdvReac Type Severity Reaction Status Date / Time furosemide [From LASIX] Allergy Intermediate SWEATING Verified 04/15/22 10:27 lorazepam [LORAZEPAM] Allergy Intermediate RESTLESS Verified 04/15/22 10:27 LEG prochlorperazine Allergy Intermediate RESTLESS Verified 04/15/22 10:27 [From COMPAZINE] LEG Sulfa (Sulfonamide Allergy Mild Hives and Verified 04/15/22 10:27 Antibiotics) Rash [SULFA (SULFONAMIDE ANTIBIOTICS)] Review of Systems Review of Systems: Positive fall Question syncope No fever no chills no chest pain or diaphoresis Yes all other systems are reviewed and are negative PMFSH Past Medical History Attestation statement: The following information was validated with the patient. Medical History Acute Crohn's disease Chronic respiratory failure Chronic restrictive lung disease Colitis COPD (chronic obstructive pulmonary disease) Dysphagia Emphysema of lung Infection due to Stenotrophomonas maltophilia Insomnia YURI on CPAP Osteoporosis Pre-op chest exam Surgical History History of bowel resection Hx of cholecystectomy S/P complete hysterectomy Social History Social History Household Members: Other Household Members Other:: granddaughter Patient Tobacco Use Status: Former Tobacco user Tobacco use type: Cigarette Years Smoked: 15 yrs ago Second Hand Smoke Exposure: No Substance Use Type: Marijuana Advance Directives: No Advance Directives Information Provided: Yes Physical Exam Vital Signs: Vital Signs: Last Vital Signs Temp 97.8 F 07/03/22 21:33 Pulse 82 07/04/22 00:55 Resp 16 07/04/22 00:55 BP 137/74 07/04/22 00:55 Pulse Ox 98 07/04/22 00:55 O2 Del Method Mechanical Ventil ation 07/03/22 23:38 FiO2 100 07/03/22 23:32 Oxygen Flow Rate 2 07/03/22 21:33 BMI result Body Mass Index 18.9 Appearance: Alert. Oriented X3. No acute distress. Eyes: Pupils equal, round and reactive to light. ENT: Pharynx normal. Neck: Normal inspection. Neck supple. No lymph nodes noted. No crepitus CVS: Normal heart rate and rhythm. Pulses normal. Normal S1 and S2 Respiratory: No respiratory distress. Diminished breath sounds bilaterally. No chest wall tenderness elicited on palpation. No crepitus noted. Abdomen: Soft and nontender. No rigidity. No distention. good BS x4 Skin: Skin warm and dry. Normal skin color. Normal skin turgor. Extremities: Positive skin tear noted at the left elbow and at the left knee. Range of motion intact in both the left elbow and the left knee. Neuro: Oriented X 3. No motor deficit. No sensory deficit. Moving all extermities. No slurred speech Medications Administered Generic Name Dose Route Start Last Admin Trade Name Freq PRN Reason Stop Dose Admin Propofol 1,000 mg in 100 mls @ 0 mls/hr 07/04/22 00:30 07/04/22 00:55 Diprivan IVCONT 40 mcg/kg/min .Q0M DINA 11.28 mls/hr Titration Protocol Per Protocol Discontinued Medications Generic Name Dose Route Start Last Admin Trade Name Freq PRN Reason Stop Dose Admin Etomidate 20 mg 07/04/22 00:27 07/03/22 23:05 Etomidate 20 Mg/10 Ml Vial IVPUSH 07/04/22 00:28 20 mg ONCE ONE Administration Sodium Chloride 500 mls @ 999 mls/hr 07/03/22 21:45 07/04/22 00:48 Ns IV 07/03/22 22:15 Infused .Q31M DINA Infusion Ceftriaxone Sodium 2 gm/ 50 mls @ 100 mls/hr 07/04/22 00:10 07/04/22 00:59 Sodium Chloride IV 07/04/22 00:39 Infused ONCE ONE Infusion Sodium Chloride 1,000 mls @ 999 mls/hr 07/04/22 00:15 07/04/22 00:19 Ns IV 07/04/22 01:15 999 mls/hr .Q1H1M DINA Administration Sodium Chloride 1,000 mls @ 999 mls/hr 07/04/22 00:45 07/04/22 00:57 Ns IV 07/04/22 01:45 999 mls/hr .Q1H1M DINA Administration Midazolam HCl 4 mg 07/04/22 00:27 07/03/22 23:19 Midazolam Hcl/Pf 2 Mg/2 Ml Vial IVPUSH 07/04/22 00:28 4 mg ONCE ONE Administration Succinylcholine Chloride 100 mg 07/04/22 00:27 07/03/22 23:05 Succinylcholine Chloride 200 Mg/10 Ml Vial IVPUSH 07/04/22 00:28 100 mg ONCE ONE Administration Procedures ABG Interpretation ABG Interpretation 1: ABG Results: Elevated PA O2. Ventilation status is okay. Patient's pH and bicarb are okay Central Line Placement Right Femoral: Time Out Performed: Yes Patient Placed on Monitor/Pulse Ox: Yes MD Prep: mask, gown and gloves Central Line Prep: Chlorhexidine scrub Local Anesthetic: lidocaine 1% Amount of anesthesia used (mL): 3 Central Line Lumen Inserted: triple Post Procedure: sutured in place, good blood return, all ports aspirated, flushed, capped and sterile dressing applied Patient Tolerated Procedure: well Complications: none Intubation Time out performed: Yes sedative: Etomidate Mg Given: 20 paralytic: Succinylcholine Mg Given: 100 Laryngoscope: Chiquita ET Tube Size: 7.5 ET Tube Uncuffed: No Tube Secured Depth (cm): 22 Tube Secured Location: lips Tube Placement Confirmation: visualized tube passing through cords Patient Tolerated Procedure: well Intubation Complications: none Medical Decision Making Medical Decision Making MDM Narrative: Patient on arrival extremely agitated. Unable to give detailed history. She pulled out her only IV line. I put in a ultrasound-guided peripheral IV. A 20 gauge was put in in the left arm. Patient has multiple skin tears. Agitated. Moving about. Requiring intubation. RSI was use patient was intubated labs were drawn. A triple-lumen was placed. Patient's labs showed elevated BUN and creatinine consistent with acute renal insufficiency dehydration. Patient's ABG showed no acute CO2 retention. It did show an elevated FiO2 as patient was on 100% oxygen. This was to down. Patient's urine showed no signs of infection. Chest x-ray showed no focal infiltrate it shows the ET tube in place. The OG tube in place. Patient will require ICU admission. Patient's urine showed no signs of infection. CT scan of the head grossly negative for any acute evidence of bleeding. CT scan of the C-spine showed no acute fracture. CT scan of the chest showed no acute pneumonia pneumothorax. CT scan of the abdomen pelvis showed no acute abdomen. No evidence for diverticulitis. No abscess no perforations. Differential Diagnosis Differential Diagnoses: The differential diagnosis associated with the presentation includes Intracranial bleed, meningitis, pneumonia, CO2 retention, traumatic injuries, fractures, urinary tract infection, narcotic overdose, narcotic withdrawal Admission/Observation Consideration of admission/observation: Escalation of care including admission/observation considered Consult Healthcare Provider Catcher Plug Lab Data MDM Lab Attestation statement: I reviewed the patient's lab results. 07/03/22 22:58 07/03/22 22:58 Labs: Lab Results 07/03/22 07/03/22 07/03/22 Range/Units 22:58 22:58 22:58 WBC 14.8 H (4.8-10.8) X10*3/uL RBC 4.06 L (4.20-5.50) X10*6/uL Hgb 13.4 (12.0-16.0) g/dl Hct 41.0 (37.0-47.0) % MCV 101.0 H (80.0-98.0) fL MCH 33.0 (27.0-33.0) pg MCHC 32.7 (31.0-35.0) g/dl RDW 14.7 (11.0-16.0) % Plt Count 186 (160-400) X10*3/uL MPV 10.0 (9.4-12.3) fL Immature Gran % (Auto) 3.0 H (0.0-0.4) % Neut % (Auto) 85.5 H (45-73) % Lymph % (Auto) 3.7 L (20-40) % [place] % (Auto) 7.4 (2-11) % Eos % (Auto) 0.1 (0-4) % Baso % (Auto) 0.3 (0-2) % Lymph # (Auto) 0.6 L (1.2-4.9) X10*3/uL [place] # (Auto) 1.1 (0.1-1.2) X10*3/uL Eos # (Auto) 0.0 (0.0-0.4) X10*3/uL Baso # (Auto) 0.1 (0.0-0.2) X10*3/uL Abs Immat Gran (auto) 0.44 H (0.00-0.03) X10*3/uL Absolute Neuts (auto) 12.7 H (2.0-8.3) x10*3/uL Absolute Nucleated RBC 0.050 H (0.0-0.012) X10*3/uL Nucleated RBC % (auto) 0.3 H (0.0-0.2) /100WBC O2 Saturation % ABG pH at Pt Temp (7.35-7.45) ABG pCO2 at Pt Temp (32-45) mmHg ABG pO2 at Pt Temp (83-108) mmHg ABG HCO3 (22-26) mmol/L ABG Base Excess (Actual) mmol/L Sodium 140 (135-145) mmol/L Potassium 5.0 (3.3-5.1) mmol/L Chloride 103 (96-108) mmol/L Carbon Dioxide 20 L (22-29) mmol/L Anion Gap 22 H (12-20) BUN 68 H (9-16) mg/dL Creatinine 2.68 H (0.5-1.4) mg/dL Estim Creat Clear Calc 16.1 Estimated GFR 18 Random Glucose 128 H (60-115) mg/dL Calcium 8.9 (8.4-10.2) mg/dL Total Bilirubin 0.8 (0.0-1.0) mg/dL Direct Bilirubin 0.2 (0.0-0.5) mg/dL AST 35 H (5-31) U/L ALT 31 (0-31) U/L Alkaline Phosphatase 70 (39-117) U/L Troponin I High Sens 16.1 (<3.5-17.0) ng/L Total Protein 6.5 (6.5-8.0) g/dL Albumin 3.9 (3.5-5.0) g/dL Urine Color Urine Appearance Urine pH (5.0-9.0) Ur Specific [place] (1.005-1.025) Urine Protein (Neg-Trace) mg/dL Urine Glucose (UA) (Negative) mg/dL Urine Ketones (Negative) mg/dL Urine Blood (Negative) Urine Nitrite (Negative) Ur Leukocyte Esterase (Negative) Urine RBC (0-2) /HPF Urine WBC (0-5) /HPF Ur Squamous Epith Cells (0-2) /HPF Other Crystals Urine Bacteria (None Seen) Hyaline Casts (0-2) /LPF 07/03/22 07/03/22 Range/Units 23:15 23:45 WBC (4.8-10.8) X10*3/uL RBC (4.20-5.50) X10*6/uL Hgb (12.0-16.0) g/dl Hct (37.0-47.0) % MCV (80.0-98.0) fL MCH (27.0-33.0) pg MCHC (31.0-35.0) g/dl RDW (11.0-16.0) % Plt Count (160-400) X10*3/uL MPV (9.4-12.3) fL Immature Gran % (Auto) (0.0-0.4) % Neut % (Auto) (45-73) % Lymph % (Auto) (20-40) % [place] % (Auto) (2-11) % Eos % (Auto) (0-4) % Baso % (Auto) (0-2) % Lymph # (Auto) (1.2-4.9) X10*3/uL [place] # (Auto) (0.1-1.2) X10*3/uL Eos # (Auto) (0.0-0.4) X10*3/uL Baso # (Auto) (0.0-0.2) X10*3/uL Abs Immat Gran (auto) (0.00-0.03) X10*3/uL Absolute Neuts (auto) (2.0-8.3) x10*3/uL Absolute Nucleated RBC (0.0-0.012) X10*3/uL Nucleated RBC % (auto) (0.0-0.2) /100WBC O2 Saturation 100.0 % ABG pH at Pt Temp 7.43 (7.35-7.45) ABG pCO2 at Pt Temp 32 (32-45) mmHg ABG pO2 at Pt Temp 563 H (83-108) mmHg ABG HCO3 22 (22-26) mmol/L ABG Base Excess (Actual) -1.1 mmol/L Sodium (135-145) mmol/L Potassium (3.3-5.1) mmol/L Chloride (96-108) mmol/L Carbon Dioxide (22-29) mmol/L Anion Gap (12-20) BUN (9-16) mg/dL Creatinine (0.5-1.4) mg/dL Estim Creat Clear Calc Estimated GFR Random Glucose (60-115) mg/dL Calcium (8.4-10.2) mg/dL Total Bilirubin (0.0-1.0) mg/dL Direct Bilirubin (0.0-0.5) mg/dL AST (5-31) U/L ALT (0-31) U/L Alkaline Phosphatase (39-117) U/L Troponin I High Sens (<3.5-17.0) ng/L Total Protein (6.5-8.0) g/dL Albumin (3.5-5.0) g/dL Urine Color Dark Yellow Urine Appearance Turbid Urine pH 5.0 (5.0-9.0) Ur Specific [place] 1.025 (1.005-1.025) Urine Protein 100 (2+) H (Neg-Trace) mg/dL Urine Glucose (UA) 100 H (Negative) mg/dL Urine Ketones Trace (Negative) mg/dL Urine Blood Large (3+) H (Negative) Urine Nitrite Negative (Negative) Ur Leukocyte Esterase Small (1+) H (Negative) Urine RBC >20 H (0-2) /HPF Urine WBC 11-20 H (0-5) /HPF Ur Squamous Epith Cells >20 (0-2) /HPF Other Crystals Present Urine Bacteria None Seen (None Seen) Hyaline Casts >20 (0-2) /LPF Independent Interpretation I performed an independent interpretation of an: EKG Interpretation: My interpretation patient's EKG showed a sinus rhythm heart rate is 100 MT QRS QT within normal limits there is no acute ST segment elevation noted Radiology Impression Discussion of test interpretation with radiology: I have reviewed the radiologist's reading. External Record Review External record reviewed: Inpatient record Chronic Conditions COPD, chronically on O2, on steroids Critical Care Time Critical Care Time Critical Care Time: Yes Total Critical Care Time: 75 Attestation: att Discharge Plan Discharge Clinical Impression: Altered mental state, COPD (chronic obstructive pulmonary disease)
--- NOTE | 2022-07-03 22:40 | PC.NURSE ---
late entry- this rn assumed care of pt @ 2133. iv line placed by ems prior to arrival in er. pt responding to name. dr lynn made aware of pt status, md to bedside for assessment. pt difficult to redirect, restless, attempting to remove c collar. this rn attempted to flush iv placed by ems. iv infiltrated. pocketed spring assembler attempted to obtain blood work and was unsuccessful. this rn attempted iv twice, supercharger mechanic attempted iv placement s and lab work unsuccessfully. this rn made dr lynn aware. dr lynn to beside for US guided iv placement. multiple failed attempts. placement of 20g IV in L AC. in which blood work obtained and sent down to lab. delay in iv placement and labwork being obtained. pt started on ivf. pt extremely restless diffidult to redirect pt continues move around irradicatly. in which pt obtained skin tear to L back of hand. dr lynn aware and at bedside at this time.
[2022-07-03 23:02] LABS: MANUAL DIFF FLAG NO
[2022-07-03 23:04] LABS: Basophils Absolute Auto 0.1 X10*3/uL (0.0-0.2); Basophils Percent Auto 0.3 % (0-2); Eosinophils Percent Auto 0.1 % (0-4); Hemoglobin 13.4 g/dl (12.0-16.0); Imm Gran Abs Auto 0.44 X10*3/uL (0.00-0.03); Lymphocytes Absolute Auto 0.6 X10*3/uL (1.2-4.9); Lymphocytes Percent Auto 3.7 % (20-40); Mean Corpuscular HGB Conc 32.7 g/dl (31.0-35.0); Monocytes Absolute Auto 1.1 X10*3/uL (0.1-1.2); Monocytes Percent Auto 7.4 % (2-11); NRBC Pct Auto 0.3 /100WBC (0.0-0.2); Neutrophils Absolute Auto 12.7 x10*3/uL (2.0-8.3); Neutrophils Percent Auto 85.5 % (45-73); Platelet Count 186 X10*3/uL (160-400); Red Blood Count 4.06 X10*6/uL (4.20-5.50); Red Cell Distribution Width 14.7 % (11.0-16.0); White Blood Count 14.8 X10*3/uL (4.8-10.8)
[2022-07-03] MEDS: Etomidate 20 MG/10 ML VIAL IVPUSH (23:05)
[2022-07-03] MEDS: Succinylcholine Chloride 200 MG/10 ML VIAL 100 MG IVPUSH (23:05)
--- NOTE | 2022-07-03 23:08 | PC.NURSE ---
Addendum entered by Diana Parisi 07/03/22 23:25: ABG resulted, plan to decrease FiO2 to 35%. Addendum entered by Diana Parisi 07/03/22 23:19: Pt medicated with Versed 4 mg IVP. Almeida at bedside for central line placement. Addendum entered by Daina Parisi 07/03/22 23:16: Vent settings: 18, 350, 100%, PEEP 5. XRay at bedside. Propofol infusing. Original Note: at bedside for U/S IV. Due to continued confusion and AMS, plan to sedate/intubate in order to obtain CT. IV established to LAC 20 ga by ALMEIDA. 2305, pt medicated with 20 of Etomidate and 100 of Succ. 2306, intubated by MD Damonu, 7.5 ETT, 23 @ the lip, +color change, Capnography 33. 2312, +OGT placed by Almeida. Propofol initiated for sedation.
[2022-07-03] MEDS: 0.9 % Sodium Chloride 500 ML 999 ML IV (23:10)
[2022-07-03] MEDS: propofoL 1,000 MG/100 ML VIAL 8.46 MG IVCONT (23:12)
[2022-07-03] MEDS: Midazolam HCl/PF 2 MG/2 ML VIAL 4 MG IVPUSH (23:19)
[2022-07-03 23:24] LABS: Alanine Aminotransferase 31 U/L (0-31); Albumin Level 3.9 g/dL (3.5-5.0); Alkaline Phosphatase 70 U/L (39-117); Anion Gap 22 (12-20); Aspartate Amino Transferase 35 U/L (5-31); Bilirubin Direct 0.2 mg/dL (0.0-0.5); Bilirubin Total 0.8 mg/dL (0.0-1.0); Blood Urea Nitrogen 68 mg/dL (9-16); Calcium 8.9 mg/dL (8.4-10.2); Carbon Dioxide 20 mmol/L (22-29); Chloride 103 mmol/L (96-108); Creatinine Clr Calc Pharmacy 16.1; Estimated Glomerular Filt Rate 18; Glucose Random 128 mg/dL (60-115); Sodium 140 mmol/L (135-145); Total Protein 6.5 g/dL (6.5-8.0)
[2022-07-03 23:25] LABS: ABG Base Excess -1.1 mmol/L; ABG HCO3 22 mmol/L (22-26); ABG pCO2 32 mmHg (32-45); ABG pH 7.43 (7.35-7.45); ABG pO2 563 mmHg (83-108)
[2022-07-03 23:28] LABS: Troponin-I High Sensitivity 16.1 ng/L (<3.5-17.0)
[2022-07-03 23:56] LABS: Appearance Urine Turbid; Color Urine Dark Yellow; Glucose Urine UA 100 mg/dL (Negative); Leukocyte Esterase Urine Small (1+) (Negative); Nitrite Urine Negative (Negative); Specific Gravity - Urine 1.025 (1.005-1.025); UMIC TRIGGER UACC YES; Urine Blood Large (3+) (Negative); Urine Ketones Trace mg/dL (Negative); Urine Protein 100 (2+) mg/dL (Neg-Trace)
[2022-07-04] VITALS (34 sets, daily range): BP systolic 101–159; BP diastolic 41–83; PULSE 53–124; RESP 12–24; TEMP 34.9–38.3; O2SAT 84–100; BMI 20.6
[2022-07-04 00:09] LABS: Bacteria Urine None Seen (None Seen); Hyaline Casts Urine >20 /LPF (0-2); Other Crystals Urine Present; RBC Urine >20 /HPF (0-2); Squamous Epithelial Cell Urine >20 /HPF (0-2); UACC Culture Trigger YES
--- NOTE | 2022-07-04 00:15 | PC.NURSE ---
late entry- this rn and edge inker heels wrapped and cleaned pt skin tears. guerrero catheter placed 16 [place] temperature sensing probe in place. initial output of 200ml voided. urine sample sent down to lab
[2022-07-04] MEDS: 0.9 % Sodium Chloride 1,000 ML 999 ML IV ×2 (00:19→00:57)
[2022-07-04] MEDS: cefTRIAXone sodium 2 GM in 0.9 % Sodium Chloride 50 ML IV (00:22)
--- NOTE | 2022-07-04 01:00 | PC.NURSE ---
late entry- this rn, director of pediatric rehabilitation, RT transported pt to CT for scans. pt remains sedated appropriately during scans. pt brought back to room.
--- NOTE | 2022-07-04 01:07 | P.HPCC_ITS ---
History of Present Illness Date of Service: 07/04/22 Attending physician on admission: Mike Christianson Chief Complaint: AMS The patient is a 67-year-old female with past medical history of COPD (2 L at baseline), YURI, Crohn's disease (on prednisone and azathioprine), post multiple resections,colitis,? hypertension, GERD, anxiety and depression, who presented to the Emergency department after a fall.? According to the family they heard a loud noise while the patient was in the bathroom,? they found the patient on the floor,? altered mental status and kept falling asleep. On arrival at patient 's residence, EMS administered Narcan and the patient woke up. I personally spoke with Granddaughter, Adriana,? who also reported patient had a recent admission for Crohn?s flare in May 2022 at [facility]. She reports patient was lethargic all day and reporting frequent loose stools. No nausea, vomiting.? In the the emergency room, she became? extremely agitated? requiring? emergent intubation.? ?Laboratory data? significant for BC 14.8,? serum bicarb 20, BUN 68, creatinine 2.68 ?AB.43/32/563/22 IMAGING:? Head CT: ? no acute bleed ?Cervical spine CT: No evidence of acute fracture or traumatic subluxation of the cervical spine.? ?Chest CT:? no acute disease ?Abdominal/ pelvis CT: no acute disease XRAY Left kneeNo acute fracture or dislocation. ?XRAY left Elbow No acute fracture or dislocation. ? Review of Systems Review of Systems: Yes unobtainable due to endotracheal tube PMFSH Past Medical History Medical History (Updated 07/04/22 @ 02:30 by Alma Jaime NP) Acute Crohn's disease Chronic respiratory failure Chronic restrictive lung disease Colitis COPD (chronic obstructive pulmonary disease) Dysphagia Emphysema of lung Infection due to Stenotrophomonas maltophilia Insomnia YURI on CPAP Osteoporosis Pre-op chest exam Surgical History Surgical History History of bowel resection Hx of cholecystectomy S/P complete hysterectomy Social History Social History Household Members: Other Household Members Other:: granddaughter Patient Tobacco Use Status: Former Tobacco user Tobacco use type: Cigarette Years Smoked: 15 yrs ago Second Hand Smoke Exposure: No Substance Use Type: Marijuana Currently Displaying Signs/Symptoms of Drug Intoxication Withdrawal: No Advance Directives: No Advance Directives Information Provided: Yes Current occupational status: unemployed Meds Allergies Allergy/AdvReac Type Severity Reaction Status Date / Time furosemide [From LASIX] Allergy Intermediate SWEATING Verified 04/15/22 10:27 lorazepam [LORAZEPAM] Allergy Intermediate RESTLESS Verified 04/15/22 10:27 LEG prochlorperazine Allergy Intermediate RESTLESS Verified 04/15/22 10:27 [From COMPAZINE] LEG Sulfa (Sulfonamide Allergy Mild Hives and Verified 04/15/22 10:27 Antibiotics) Rash [SULFA (SULFONAMIDE ANTIBIOTICS)] Active Medications: Current Medications Chlorhexidine Gluconate (Chlorhexidine Gluc Oral Rinse 15 Ml Mouthwash) 15 ml BUCCAL TID DINA Heparin Sodium (Porcine) (Heparin Sodium,Porcine 5,000 Unit/Ml Vial) 5,000 unit SUBCUT TID DINA Sodium Chloride (Ns) 1,000 mls @ 999 mls/hr IV .Q1H1M [facility] Stop: 07/04/22 01:15 Last Admin: 07/04/22 00:19 Dose: 999 mls/hr Propofol (Diprivan) 1,000 mg in 100 mls @ 0 mls/hr IVCONT .Q0M DINA; Protocol Last Titration: 07/04/22 00:55 Dose: 40 mcg/kg/min, 11.28 mls/hr Sodium Chloride (Ns) 1,000 mls @ 999 mls/hr IV .Q1H1M [facility] Stop: 07/04/22 01:45 Last Admin: 07/04/22 00:57 Dose: 999 mls/hr Pantoprazole Sodium 40 mg/ (Sodium Chloride) 110 mls @ 400 mls/hr IV DAILY@0630 [facility] Home Medications Medication Instructions Recorded Confirmed Last Taken Type budesonide 3 mg 9 mg PO DAILY 11/14/19 07/04/22 11/20/19 History capsule,delayed,extended release gabapentin 300 mg capsule 600 mg PO DAILY 11/14/19 07/04/22 Unknown History metoprolol succinate 100 mg 100 mg PO BID 11/14/19 07/04/22 11/20/19 History tablet,extended release 24 hr niacinamide 500 mg tablet 500 mg PO BID 0907/04/22 11/20/19 History omeprazole 20 mg capsule,delayed 20 mg PO DAILY 11/14/19 07/04/22 11/20/19 History release oxycodone 15 mg tablet 15 mg PO QID PRN Pain 11/14/19 07/04/22 11/20/19 History baclofen 20 mg tablet 20 mg PO TID PRN Pain 11/20/19 07/04/22 11/20/19 History gabapentin 300 mg capsule 900 mg PO BEDTIME 11/20/19 07/04/22 11/20/19 History magnesium oxide 400 mg PO BID 11/20/19 07/04/22 11/20/19 History azathioprine 50 mg tablet 100 mg PO BID 12/07/19 07/04/22 Unknown History albuterol sulfate 90 mcg/actuation 2 puff inhalation Q4H PRN wheezing 06/17/20 07/04/22 Unknown History aerosol inhaler cholecalciferol (vitamin D3) 25 25 mcg PO BID 06/17/20 07/04/22 Unknown History mcg (1,000 unit) capsule citalopram 20 mg tablet 30 mg PO DAILY 04/15/22 07/04/22 Unknown History alendronate 70 mg tablet 70 mg PO QWEEK 07/04/22 07/04/22 Unknown History potassium chloride 10 mEq 10 meq PO BID 07/04/22 07/04/22 Unknown History tablet,extended release Physical Exam Vital Signs: Vital Signs: Last Vital Signs Temp 97.8 F 07/03/22 21:33 Pulse 82 07/04/22 00:55 Resp 16 07/04/22 00:55 BP 137/74 07/04/22 00:55 Pulse Ox 98 07/04/22 00:55 O2 Del Method Mechanical Ventil ation 07/03/22 23:38 FiO2 100 07/03/22 23:32 Oxygen Flow Rate 2 07/03/22 21:33 BMI result Body Mass Index 18.9 ?General:? intubated ?HEENT:? Head is normocephalic, atraumatic, pupils equal round reactive to light accommodation bilaterally. Buccal mucosa is dry, Neck is supple ?Cardiac:? Clear S1-S2, no murmurs rubs or gallops. ?Pulmonary:? Clear to auscultation, no wheezes, rales or rhonchi. ?Abdomen:? ?Abdomen soft,, non-distended. Normal bowel sounds. No pulsatile mass. No hepatosplenomegaly. ?Musculoskeletal:? Moving all 4 extremities random. ?Neurologic:?No focal deficits noted.? ?Skin:? skin very dry, for multiple lacerations and bruising throughout body. Vascular:? 2+ pulses upper and lower extremities distally.? Results Labs 07/03/22 22:58 07/03/22 22:58 Labs: Laboratory Results - last 24 hr 07/03/22 07/03/22 07/03/22 22:58 22:58 22:58 MCV 101.0 H MCH 33.0 MCHC 32.7 RDW 14.7 Plt Count 186 MPV 10.0 Immature Gran % (Auto) 3.0 H Neut % (Auto) 85.5 H Lymph % (Auto) 3.7 L [place] % (Auto) 7.4 Eos % (Auto) 0.1 Baso % (Auto) 0.3 Lymph # (Auto) 0.6 L [place] # (Auto) 1.1 Eos # (Auto) 0.0 Baso # (Auto) 0.1 Abs Immat Gran (auto) 0.44 H Absolute Neuts (auto) 12.7 H Absolute Nucleated RBC 0.050 H Nucleated RBC % (auto) 0.3 H O2 Saturation ABG pH at Pt Temp ABG pCO2 at Pt Temp ABG pO2 at Pt Temp ABG HCO3 ABG Base Excess (Actual) Anion Gap 22 H Estim Creat Clear Calc 16.1 Estimated GFR 18 Random Glucose 128 H Calcium 8.9 Total Bilirubin 0.8 Direct Bilirubin 0.2 AST 35 H ALT 31 Alkaline Phosphatase 70 Troponin I High Sens 16.1 Total Protein 6.5 Albumin 3.9 Urine Color Urine Appearance Urine pH Ur Specific [place] Urine Protein Urine Glucose (UA) Urine Ketones Urine Blood Urine Nitrite Ur Leukocyte Esterase Urine RBC Urine WBC Ur Squamous Epith Cells Other Crystals Urine Bacteria Hyaline Casts 07/03/22 07/03/22 23:15 23:45 MCV MCH MCHC RDW Plt Count MPV Immature Gran % (Auto) Neut % (Auto) Lymph % (Auto) [place] % (Auto) Eos % (Auto) Baso % (Auto) Lymph # (Auto) [place] # (Auto) Eos # (Auto) Baso # (Auto) Abs Immat Gran (auto) Absolute Neuts (auto) Absolute Nucleated RBC Nucleated RBC % (auto) O2 Saturation 100.0 ABG pH at Pt Temp 7.43 ABG pCO2 at Pt Temp 32 ABG pO2 at Pt Temp 563 H ABG HCO3 22 ABG Base Excess (Actual) -1.1 Anion Gap Estim Creat Clear Calc Estimated GFR Random Glucose Calcium Total Bilirubin Direct Bilirubin AST ALT Alkaline Phosphatase Troponin I High Sens Total Protein Albumin Urine Color Dark Yellow Urine Appearance Turbid Urine pH 5.0 Ur Specific [place] 1.025 Urine Protein 100 (2+) H Urine Glucose (UA) 100 H Urine Ketones Trace Urine Blood Large (3+) H Urine Nitrite Negative Ur Leukocyte Esterase Small (1+) H Urine RBC >20 H Urine WBC 11-20 H Ur Squamous Epith Cells >20 Other Crystals Present Urine Bacteria None Seen Hyaline Casts >20 Imaging Radiologist's Impressions: Impressions Chest X-Ray 07/03/22 23:26 IMPRESSION: Endotracheal tube terminates 4.1 cm above the monica. Cervical Spine CT 07/04/22 00:22 IMPRESSION: 1. No evidence of acute intracranial hemorrhage or edematous territorial infarction. Mild to moderate underlying microangiopathy and generalized cerebral volume loss. 2. No evidence of acute fracture or traumatic subluxation of the cervical spine. Advanced multilevel degenerative spondyloarthropathy of the cervical spine. Most notably on this limited exam without intrathecal contrast, there appears to be at least mild spinal canal stenoses from C3-C7. Head CT 07/04/22 00:22 IMPRESSION: 1. No evidence of acute intracranial hemorrhage or edematous territorial infarction. Mild to moderate underlying microangiopathy and generalized cerebral volume loss. 2. No evidence of acute fracture or traumatic subluxation of the cervical spine. Advanced multilevel degenerative spondyloarthropathy of the cervical spine. Most notably on this limited exam without intrathecal contrast, there appears to be at least mild spinal canal stenoses from C3-C7. Assessment and Plan (1) Acute Crohn's disease: Status: Acute (2) Altered mental state: Status: Acute (3) HERVE (acute kidney injury): Status: Acute (4) Diarrhea: Status: Acute (5) Dehydration: Status: Acute Plan Plan: Neuro:? ?Altered mental status:? patient require intubation? due to severe agitation.? Patient?s ABG did not show retention. Head CT with no acute issues. ? Patient is also on chronic oxycodone, gabapentin, baclofen and? clonazepam. ? Patient did wake up after Narcan administration.? Granddaughter states patient compliant with medications, pill bottles with appropriate amount of medicine.? Intentional OD is not likely, but could be in the setting of severe dehydration. Will obtain utox.? Cardiac:?? ?No acute issues Pulmonary: Intubated for airway protection:? wean ventilator as tolerated ?Renal:? ?Dehydration/ HERVE-? nonoliguric.? Creatinine? at [facility] was 0.77? in May of 2022,? today elevated to 2.68 Likely hypoperfusion from? Crohn?s flare. ? Received fluid bolus in ED. Will continue to trend? renal indices? closely GI:?? ?Crohn?s flare:? patient was recently admitted at [facility] for Crohn?s flare,? discharged on prednisone and azathioprine. According to family she has b een lethargic and having multiple loose stools for the past 2 days. Will give IV? corticosteroids, azathioprine, IV fluids? Endo:?? ?No acute issues ID: ?Leukocytosis-? likely from Crohn?s flare,? no evidence of severe infection.? Heme/Onc:? No acute issues. Psych:? No acute issues. Miscellaneous:? No acute issues. Prophylaxis:? Subcut Heparin, ? IV Protonix CODE:? ? FULL CODE? confirmed with granddaughter who is patient guardian/ HCP.? MOLST? from 2017 states DNR DNI,? granddaughter states her grandmother changed he remind in recent years.? Critical care time: X 60 minutes of critical care time ?Case discussed with attending ? Time Spent With Patient Time: Total time managing care of this patient today ____ minutes.
[2022-07-04 01:21] LABS: Lactic Acid 1.1 mmol/L (0.5-2.0)
--- NOTE | 2022-07-04 02:00 | PC.NURSE ---
belongings list completed prior to transport to ICU bed assignment. oxycodone tablets noted to be included in pt belongings. this rn and charge account authorizer completed medication securement envelope. envelope secured and sealed. envelope given to gerardo rn upon pt arrival in icu. vent settings at time of transfer- rate-16, TV-350, PEEP-5, O2- 30% pt transported by this rn, RT, and educational guidance counselor to icu bed assignment
[2022-07-04 02:31] LABS: Amphetamine Screen Urine Not Detected (Not Detect); Barbiturates, Urine Not Detected (Not Detect); Benzodiazepines Screen Urine POSITIVE (Not Detect); Cannabinoid Screen Urine POSITIVE (Not Detect); Cocaine Screen Urine Not Detected (Not Detect); Fentanyl, urine Not Detected (Not Detect); Opiate Screen Urine POSITIVE (Not Detect); Phencyclidine Screen Urine Not Detected (Not Detect)
[2022-07-04] MEDS: methylPREDNISolone Sod Succ 40 MG/ML VIAL IVPUSH ×2 (02:36→14:29)
[2022-07-04 02:37] LABS: ABG Refer to POC result
[2022-07-04] MEDS: Lactated Ringers 1,000 ML 100 ML IVCONT ×3 (02:37→23:52)
--- NOTE | 2022-07-04 03:36 | PC.NURSE ---
late entry- this rn unable to scan barcode for succinylcholine chloride. this rn charted accordingly in mar. rn wellness aware of inability to scan barcode
[2022-07-04] MEDS: propofoL 1,000 MG/100 ML VIAL 11.28 MG IVCONT (04:00)
--- NOTE | 2022-07-04 04:39 | PC.NURSE ---
ADMIT TO 255-1 APPROX 2AM....TUBED/VENTED...#7.5 ETT 23CM....AC 16/TV 350/ FIO2 30%/PEEP 5CM...PROPOFOL 40 MCG/KG/MIN...SEDATE...(+) GAG/COUGH..WEAKLY AMES..SYNCHRONOUS ON AC SETTINGS....SAO2 99%...VSS...LR STARTED 100 CC/HR...QUEZADA YELLOW URINE...NSR..NO ECTOPY..MULTIPLE BRUISES AND ABRASIONS TO EXTREMETIES..SKIN TEARS TO LEFT ELBOW AND LEFT KNEE WRAPPED BY DIVERSIFIED CROPS I FARMWORKER PER REPORT..COCCYX REDDENED...INCONINANT SNALL LOOSE BROWN STOOL
[2022-07-04 05:18] LABS: VBG Base Excess -0.8 mmol/L; VBG HCO3 24 mmol/L (22-26); VBG pCO2 43 mmHg; VBG pH 7.35 (7.32-7.43); VBG pO2 42 mmHg
[2022-07-04 05:37] LABS: MANUAL DIFF FLAG NO
[2022-07-04 05:40] LABS: Basophils Percent Auto 0.4 % (0-2); Eosinophils Percent Auto 0.1 % (0-4); Hematocrit 32.5 % (37.0-47.0); Hemoglobin 10.4 g/dl (12.0-16.0); Imm Gran Abs Auto 0.19 X10*3/uL (0.00-0.03); Lymphocytes Absolute Auto 0.4 X10*3/uL (1.2-4.9); Lymphocytes Percent Auto 4.5 % (20-40); Mean Corpuscular Volume 103.2 fL (80.0-98.0); Mean Platelet Volume 10.2 fL (9.4-12.3); Monocytes Absolute Auto 0.6 X10*3/uL (0.1-1.2); Monocytes Percent Auto 6.2 % (2-11); Neutrophils Absolute Auto 8.3 x10*3/uL (2.0-8.3); Neutrophils Percent Auto 86.8 % (45-73); Platelet Count 117 X10*3/uL (160-400); Red Blood Count 3.15 X10*6/uL (4.20-5.50); Red Cell Distribution Width 14.9 % (11.0-16.0); White Blood Count 9.5 X10*3/uL (4.8-10.8)
[2022-07-04 05:56] LABS: Alanine Aminotransferase 23 U/L (0-31); Albumin Level 2.8 g/dL (3.5-5.0); Alkaline Phosphatase 49 U/L (39-117); Anion Gap 14 (12-20); Aspartate Amino Transferase 25 U/L (5-31); Bilirubin Direct 0.2 mg/dL (0.0-0.5); Bilirubin Total 0.5 mg/dL (0.0-1.0); Blood Urea Nitrogen 51 mg/dL (9-16); Calcium 7.5 mg/dL (8.4-10.2); Carbon Dioxide 21 mmol/L (22-29); Chloride 110 mmol/L (96-108); Creatinine Clr Calc Pharmacy 28.7; Estimated Glomerular Filt Rate 35; Glucose Random 128 mg/dL (60-115); Phosphorus 3.9 mg/dL (2.7-4.5); Potassium 4.3 mmol/L (3.3-5.1); Sodium 141 mmol/L (135-145); Total Protein 4.7 g/dL (6.5-8.0)
[2022-07-04] MEDS: Pantoprazole Sodium 40 MG/10 ML VIAL IVPUSH (06:27)
[2022-07-04 06:45] LABS: Venous Blood Gas Refer to POC result
[2022-07-04] MEDS: Heparin Sodium,Porcine 5,000 UNIT/ML VIAL 5000 UNIT SUBCUT ×3 (08:08→20:15)
[2022-07-04] MEDS: Albumin Human 25 % 100 ML IV ×3 (08:08→19:59)
[2022-07-04] MEDS: Chlorhexidine Gluc Oral Rinse 15 ML MOUTHWASH BUCCAL ×3 (08:08→20:16)
--- NOTE | 2022-07-04 10:34 | MHC.CM.PN ---
Pt in ICU on ventilatory support and unable to participate in CM assessment: Call placed to pt's morelia Wright - message left. CM to follow for d/c planning needs
[2022-07-04] MEDS: Midazolam HCl/PF 2 MG/2 ML VIAL 0.5 MG IVPUSH (10:51)
[2022-07-04] MEDS: PHENobarbitaL sodium 130 MG/ML IM ONCE 160 MG IM (12:53)
[2022-07-04] MEDS: Midazolam HCl/PF 2 MG/2 ML VIAL 1 MG IVPUSH (14:15)
[2022-07-04] MEDS: Ketorolac Tromethamine 15 MG/ML VIAL IVPUSH (14:23)
[2022-07-04] MEDS: PHENobarbitaL sodium 130 MG/ML VIAL IM Q3Hx2 120 MG IM ×2 (15:14→19:38)
[2022-07-04] MEDS: dexmedeTOMIDidine HCL/NS 400 MCG/100 ML INFUS..BTL 12.8 MCG IVCONT (15:14)
--- NOTE | 2022-07-04 17:59 | ECG_ITS ---
Test Reason : rhythm change Blood Pressure : / mmHG Vent. Rate : 060 BPM Atrial Rate : 060 BPM P-R Int : 100 ms QRS Dur : 074 ms QT Int : 426 ms P-R-T Axes : 044 091 094 degrees QTc Int : 426 ms Sinus rhythm with sinus arrhythmia with short [place] Rightward axis Borderline ECG When compared to the previous EKG of No significant changes seen Referred By: Mike Christianson Electronically Signed By:Isidro Conrad
[2022-07-04] MEDS: dexmedeTOMIDidine HCL/NS 400 MCG/100 ML INFUS..BTL 5.12 MCG IVCONT (23:52)
[2022-07-05] VITALS (28 sets, daily range): BP systolic 134–171; BP diastolic 65–88; PULSE 54–117; RESP 10–26; TEMP 36.6–38.1; O2SAT 92–99; BMI 21.6
[2022-07-05] MEDS: Albumin Human 25 % 100 ML 200 ML IV (01:46)
[2022-07-05] MEDS: methylPREDNISolone Sod Succ 40 MG/ML VIAL IVPUSH (01:46)
--- NOTE | 2022-07-05 03:27 | PC.NURSE ---
Addendum entered by Jimbo Madrigal RN 07/05/22 06:39: AM LAB-WORK REVIEWED WITH ICU INSURANCE FOLLOW UP SPECIALIST...LASIX 20MG IV X1 GIVEN PER INSURANCE FOLLOW UP SPECIALIST Addendum entered by Jimbo Madrigal RN 07/05/22 04:50: UPDRAFT GIVEN..REMAINS WITH SOFT EXPIRATORY WHEEZES..FINE CRACKLES BASES..LR 100 CC/HR...TO ASSESS RENAL FUNCTION WITH PENDING AM LAB-WORK...SAO2 CURRENTLY 95% WITH O2 2 L/M Addendum entered by Jimbo Madrigal RN 07/05/22 04:32: AWAKE..CONFUSED BUT CONVERSANT..C/O FEELING SOB...SAO2 91-92% ON 2 L/M O2...LUNGS WITH SCATTERED SOFT EXPIRATORY WHEEZES...ICU INSURANCE FOLLOW UP SPECIALIST UPDATED..FOR ALBUTEROL UPDRAFT..SAO2 GOAL 88% OR > PER INSURANCE FOLLOW UP SPECIALIST Original Note: CARE ASSUMED 23:15...PER SHIFT REPORT PATIENT EXTUBATED APPROX 10AM....PER REPORT PATIENT CONFUSED AND SEVERE AGITATION POST-EXTUBATION...REPORTEDLY PULLED OUT FEMORAL TLC/SPITTING AT STAFF/BANGING EXTREMETIES AGAINST SIDE RAILS....PRECIDEX DRIP INITIATED AND PATIENT PREVIOUSLY PLACED IN 4 PT RESTRAINTS...PRECIDEX 0.4 MCG/KG/HR AT HS...AWAKE WITH HS ASSESSMENT...CONFUSED/DISORIENTED...AGITATED....AMES...PRECIDEX DRIP TITRATED TO 0.8 MCG/KG/H WITH GRADUAL RESTFUL EFFECT..WEANED TO 0.6 MCG FOR HR 54-56...AROUSES SPONTANEOUSLY..REMAINS CONFUSED..ATTEMPTS TO PULL ON LINES...BILATERAL LIMB AND ANKLE RESTRAINTS MAINTAINED FOR PATIENT/LINE SAFETY..REMAINS WITH DRESSINGS TO LEFT HAND/LEFT KNEE/RIGHT ELBOW/SACRUM-COCCYX...MULTIPLE ABRASIONS/BRUISES TO LEGS AND ARMS
[2022-07-05] MEDS: Albuterol Sulfate (0.083%) 2.5 MG/3 ML VIAL.NEB INHALE (04:30)
[2022-07-05 05:39] LABS: VBG Base Excess 3.7 mmol/L; VBG HCO3 25 mmol/L (22-26); VBG pCO2 26 mmHg; VBG pH 7.58 (7.32-7.43); VBG pO2 75 mmHg
[2022-07-05 05:43] LABS: MANUAL DIFF FLAG NO
[2022-07-05] MEDS: Pantoprazole Sodium 40 MG/10 ML VIAL IVPUSH (05:44)
[2022-07-05 05:47] LABS: Basophils Percent Auto 0.3 % (0-2); Hematocrit 28.3 % (37.0-47.0); Imm Gran Abs Auto 0.15 X10*3/uL (0.00-0.03); Imm Gran Pct Auto 2.1 % (0.0-0.4); Lymphocytes Absolute Auto 0.4 X10*3/uL (1.2-4.9); Lymphocytes Percent Auto 5.7 % (20-40); Mean Corpuscular HGB Conc 31.8 g/dl (31.0-35.0); Mean Corpuscular Hemoglobin 32.7 pg (27.0-33.0); Mean Corpuscular Volume 102.9 fL (80.0-98.0); Mean Platelet Volume 10.4 fL (9.4-12.3); Monocytes Absolute Auto 0.4 X10*3/uL (0.1-1.2); NRBC Pct Auto 0.3 /100WBC (0.0-0.2); Neutrophils Percent Auto 85.9 % (45-73); Platelet Count 101 X10*3/uL (160-400); Red Blood Count 2.75 X10*6/uL (4.20-5.50); Red Cell Distribution Width 14.7 % (11.0-16.0)
[2022-07-05 06:00] LABS: Venous Blood Gas Refer to POC result
[2022-07-05 06:14] LABS: Alanine Aminotransferase 19 U/L (0-31); Albumin Level 4.5 g/dL (3.5-5.0); Alkaline Phosphatase 35 U/L (39-117); Anion Gap 20 (12-20); Aspartate Amino Transferase 32 U/L (5-31); Blood Urea Nitrogen 41 mg/dL (9-16); Calcium 9.1 mg/dL (8.4-10.2); Carbon Dioxide 16 mmol/L (22-29); Chloride 110 mmol/L (96-108); Estimated Glomerular Filt Rate > 60; Glucose Random 125 mg/dL (60-115); Magnesium 1.9 mg/dL (1.6-2.6); Phosphorus 2.3 mg/dL (2.7-4.5); Potassium 5.2 mmol/L (3.3-5.1); Sodium 141 mmol/L (135-145); Total Protein 6.3 g/dL (6.5-8.0)
[2022-07-05] MEDS: Furosemide 20 MG/2 ML VIAL IVPUSH (06:36)
[2022-07-05] MEDS: Heparin Sodium,Porcine 5,000 UNIT/ML VIAL 5000 UNIT SUBCUT ×3 (08:52→19:53)
[2022-07-05] MEDS: Chlorhexidine Gluc Oral Rinse 15 ML MOUTHWASH BUCCAL (08:52)
[2022-07-05] MEDS: azaTHIOprine 50 MG TABLET PO ×2 (08:53→19:54)
[2022-07-05] MEDS: PHENobarbitaL 15 MG TABLET 45 MG PO ×2 (08:53→22:15)
--- NOTE | 2022-07-05 09:22 | PHA.MEDREC ---
Pharmacy Consult ? Medication Reconciliation Pharmacy has completed the medication reconciliation.
[2022-07-05] MEDS: dexmedeTOMIDidine HCL/NS 400 MCG/100 ML INFUS..BTL 10.24 MCG IVCONT (10:04)
--- NOTE | 2022-07-05 10:53 | P.PNCC_ITS ---
Subjective Subjective Date of Service: 07/05/22 Interval History: 67-year-old lady with underlying history of COPD 2 L of supplemental oxygen, YURI, Crohn's status post prior resections, anxiety, alcohol use admitted 07/04/2022 with mechanical fall and alteration of mental status patient intubated in the emergency room for airway protection and transferred to intensive care unit. in the intensive care unit patient hydrated with improvement in underlying acute kidney injury and patient extubated on 07/04/2022, however she developed delirium tremens requiring Precedex drip. No events overnight. Being titrated off Precedex drip. Critical Care Time (minutes): 45 Physical Exam Vital Signs: Vital Signs: Last Vital Signs Temp 98.2 F 07/05/22 10:00 Pulse 80 07/05/22 10:00 Resp 19 07/05/22 10:00 BP 161/78 H 07/05/22 10:00 Pulse Ox 97 07/05/22 10:00 O2 Del Method Nasal Cannula 07/05/22 10:00 O2 Flow Rate 2 07/05/22 10:00 FiO2 30 07/04/22 09:00 Oxygen Flow Rate 2 07/03/22 21:33 BMI result Body Mass Index 21.6 Const: General: no acute distress, alert and awake Eyes: Sclerae: sclerae normal EOM: EOMs intact bilaterally Neck: Neck: Yes no lymphadenopathy, Yes trachea midline and Yes supple Resp: Effort & Inspection: normal respiratory effort and no respiratory distress Auscultation: clear to auscultation bilaterally Cardio: Rate: regular rate Rhythm: regular rhythm Heart sounds: no gallops, no murmurs and no rubs GI: Palpation (GI): Soft to palpation and Other GI palpation findings present ( Nontender) Auscultation: normal bowel sounds Extrem: General: Yes no pedal edema, No clubbing and No cyanosis Objective Data Labs 07/05/22 05:15 07/05/22 05:15 Labs: Laboratory Results - last 24 hr 07/05/22 07/05/22 07/05/22 05:15 05:15 05:30 WBC 7.0 RBC 2.75 L Hgb 9.0 L Hct 28.3 L MCV 102.9 H MCH 32.7 MCHC 31.8 RDW 14.7 Plt Count 101 L MPV 10.4 Immature Gran % (Auto) 2.1 H Neut % (Auto) 85.9 H Lymph % (Auto) 5.7 L [place] % (Auto) 6.0 Eos % (Auto) 0.0 Baso % (Auto) 0.3 Lymph # (Auto) 0.4 L [place] # (Auto) 0.4 Eos # (Auto) 0.0 Baso # (Auto) 0.0 Abs Immat Gran (auto) 0.15 H Absolute Neuts (auto) 6.0 Absolute Nucleated RBC 0.020 H Nucleated RBC % (auto) 0.3 H VBG pH 7.58 H VBG pCO2 26 VBG pO2 75 VBG HCO3 25 VBG O2 Saturation 96.0 VBG Base Excess 3.7 Sodium 141 Potassium 5.2 H D Chloride 110 H Carbon Dioxide 16 L Anion Gap 20 BUN 41 H Creatinine 0.88 Estim Creat Clear Calc 49.0 Estimated GFR > 60 Random Glucose 125 H Calcium 9.1 D Phosphorus 2.3 L Magnesium 1.9 Total Bilirubin 1.0 AST 32 H ALT 19 Alkaline Phosphatase 35 L Total Protein 6.3 L Albumin 4.5 Microbiology Microbiology Results: Microbiology 07/04/22 Unknown Urine Catheterized - Evans Catheter Urine Culture - Final No growth. 07/04/22 01:06 Blood - Venous Blood Culture - Preliminary No growth after 24 hours. 07/04/22 01:06 Blood - Venous Blood Culture - Preliminary No growth after 24 hours. Progress Note: A&P Assessment and plan (1) Delirium tremens: Status: Acute (2) HERVE (acute kidney injury): Status: Acute (3) Acute and chronic respiratory failure: Status: Acute (4) YURI on CPAP: Status: Acute (5) COPD (chronic obstructive pulmonary disease): Status: Acute Plan Assessment: 67-year-old lady admitted with alteration of mental status requiring intubation for airway protection further complicated by acute renal failure Plan: Neuro: Delirium tremens, continue to titrate of Precedex as tolerated. On [facility] nobarbital protocol. Cardiac: No acute issues. Pulmonary: acute on chronic hypoxic respiratory failure initially required ventilatory support, extubated 07/04/2022. Underlying COPD and YURI on CPAP. Renal: Acute renal failure, resolved. Non oliguric. Continue to monitor renal indices and urine output. Endo: No acute issues. GI: No acute issues. Underlying Crohn's disease. ID: No acute issues Heme/Onc: No acute issues. Psych: No acute issues. Miscellaneous: No acute issues. Prophylaxis: Heparin Diet: regular Critical care time spent: 45 minutes Quality Stroke Does the patient have a stroke diagnosis?: No VTE Prior VTE?: No VTE Risk Level:: Medical - moderate - high VTE Device Contraindication: N/A - Device Ordered VTE Drug Contraindication: N/A - Med Ordered
[2022-07-05] MEDS: Ketorolac Tromethamine 15 MG/ML VIAL IVPUSH ×2 (12:26→19:22)
[2022-07-05 12:42] LABS: Anion Gap 19 (12-20); Blood Urea Nitrogen 38 mg/dL (9-16); Calcium 9.5 mg/dL (8.4-10.2); Carbon Dioxide 25 mmol/L (22-29); Chloride 102 mmol/L (96-108); Creatinine Clr Calc Pharmacy 50.7; Estimated Glomerular Filt Rate > 60; Glucose Random 119 mg/dL (60-115); Potassium 4.5 mmol/L (3.3-5.1); Sodium 141 mmol/L (135-145)
[2022-07-05] MEDS: Acetaminophen 325 MG TABLET 650 MG PO (19:53)
[2022-07-06] VITALS (12 sets, daily range): BP systolic 124–165; BP diastolic 68–84; PULSE 79–106; RESP 10–23; TEMP 37–37.6; O2SAT 96–100; BMI 20.2
[2022-07-06] MEDS: Ketorolac Tromethamine 15 MG/ML VIAL IVPUSH ×2 (01:16→10:37)
[2022-07-06] MEDS: Acetaminophen 325 MG TABLET 650 MG PO ×3 (03:51→20:40)
[2022-07-06 05:10] LABS: MANUAL DIFF FLAG NO
[2022-07-06 05:14] LABS: Basophils Percent Auto 0.2 % (0-2); Eosinophils Percent Auto 0.2 % (0-4); Hemoglobin 9.5 g/dl (12.0-16.0); Imm Gran Abs Auto 0.19 X10*3/uL (0.00-0.03); Imm Gran Pct Auto 1.9 % (0.0-0.4); Lymphocytes Absolute Auto 1.4 X10*3/uL (1.2-4.9); Lymphocytes Percent Auto 13.8 % (20-40); Mean Corpuscular HGB Conc 32.8 g/dl (31.0-35.0); Mean Corpuscular Hemoglobin 32.9 pg (27.0-33.0); Mean Corpuscular Volume 100.3 fL (80.0-98.0); Mean Platelet Volume 9.8 fL (9.4-12.3); Monocytes Absolute Auto 0.8 X10*3/uL (0.1-1.2); Monocytes Percent Auto 7.8 % (2-11); Neutrophils Absolute Auto 7.5 x10*3/uL (2.0-8.3); Neutrophils Percent Auto 76.1 % (45-73); Platelet Count 120 X10*3/uL (160-400); Red Blood Count 2.89 X10*6/uL (4.20-5.50); Red Cell Distribution Width 14.6 % (11.0-16.0); White Blood Count 9.9 X10*3/uL (4.8-10.8)
[2022-07-06 05:17] LABS: VBG Base Excess 9.4 mmol/L; VBG HCO3 31 mmol/L (22-26); VBG pCO2 33 mmHg; VBG pH 7.57 (7.32-7.43); VBG pO2 57 mmHg
[2022-07-06 05:20] LABS: Venous Blood Gas Refer to POC result
[2022-07-06 05:31] LABS: Alanine Aminotransferase 25 U/L (0-31); Albumin Level 4.5 g/dL (3.5-5.0); Alkaline Phosphatase 40 U/L (39-117); Anion Gap 17 (12-20); Aspartate Amino Transferase 30 U/L (5-31); Bilirubin Total 0.9 mg/dL (0.0-1.0); Blood Urea Nitrogen 51 mg/dL (9-16); Calcium 9.3 mg/dL (8.4-10.2); Carbon Dioxide 24 mmol/L (22-29); Chloride 105 mmol/L (96-108); Creatinine Clr Calc Pharmacy 51.9; Estimated Glomerular Filt Rate > 60; Glucose Random 70 mg/dL (60-115); Phosphorus 2.6 mg/dL (2.7-4.5); Potassium 3.9 mmol/L (3.3-5.1); Sodium 142 mmol/L (135-145); Total Protein 6.2 g/dL (6.5-8.0)
[2022-07-06] MEDS: Pantoprazole Sodium 40 MG/10 ML VIAL IVPUSH (05:47)
--- NOTE | 2022-07-06 06:37 | PC.NURSE ---
Assumed care 1899 pt A&Ox3, SR on tele, 2L nc LS clear throughout, temp 100.2 ASSISTANT EDUCATION DIRECTOR Alma made aware new order for PO tylenol, Pt passed bedside swallow eval diet advanced to Cardiac diet. decreased UO this shift <30 per hr. Bladder scan shows nothing in bladder, ASSISTANT EDUCATION DIRECTOR made aware no new orders at this time. PO fluids encouraged. Pt c/o being itchy, bed bath given.
[2022-07-06] MEDS: Heparin Sodium,Porcine 5,000 UNIT/ML VIAL 5000 UNIT SUBCUT ×3 (08:01→20:41)
[2022-07-06] MEDS: Metoprolol Succinate ER 100 MG TAB.ER.24H PO ×2 (08:02→20:40)
[2022-07-06] MEDS: azaTHIOprine 50 MG TABLET PO ×2 (08:02→20:39)
[2022-07-06] MEDS: Potassium Phosphate/NS 15 MMOL/250 ML PLAST..BAG 62.5 MMOL IV (08:02)
[2022-07-06] MEDS: PHENobarbitaL 15 MG TABLET 45 MG PO ×2 (08:02→20:40)
[2022-07-06] MEDS: Folic Acid 1 MG TABLET 2 MG PO (08:33)
[2022-07-06] MEDS: Thiamine HCL 100 MG TABLET 300 MG PO (08:34)
--- NOTE | 2022-07-06 09:37 | MHC.CM.PN ---
Addendum entered by Maggie Mo 07/06/22 09:47: Correction: HCP not on file: Copy requested - pt states it's at home Original Note: Pt extubated and able to participate in CM assessment: Pt states she lives w/her granddtr and has other support/transportation provided by her friend Coco. Pt uses a walker at times and would like [facility] for housekeeping services. Discussed [facility] vs STR: pt states she would consider both if the MD suggests a need. [facility] per her choice. HCP on file/IMM in chart. CM to follow for finalization of d/c needs.
--- NOTE | 2022-07-06 09:58 | P.PNCC_ITS ---
Subjective Subjective Date of Service: 07/06/22 Interval History: 67-year-old lady with underlying history of COPD 2 L of supplemental oxygen, YURI, Crohn's status post prior resections, anxiety, alcohol use admitted 07/04/2022 with mechanical fall and alteration of mental status patient intubated in the emergency room for airway protection and transferred to intensive care unit. in the intensive care unit patient hydrated with improvement in underlying acute kidney injury and patient extubated on 07/04/2022, however she developed delirium tremens requiring Precedex drip. No events overnight. Titrated off Precedex drip. Critical Care Time (minutes): 0 Physical Exam Vital Signs: Vital Signs: Last Vital Signs Temp 98.8 F 07/06/22 08:00 Pulse 106 H 07/06/22 08:00 Resp 23 H 07/06/22 08:00 BP 163/73 H 07/06/22 08:00 Pulse Ox 96 07/06/22 08:00 O2 Del Method Room Air, Nasal C annula 07/06/22 08:00 O2 Flow Rate 2 07/06/22 08:00 FiO2 30 07/04/22 09:00 Oxygen Flow Rate 2 07/03/22 21:33 BMI result Body Mass Index 20.2 Const: General: no acute distress, alert and awake Eyes: Sclerae: sclerae normal EOM: EOMs intact bilaterally Neck: Neck: Yes no lymphadenopathy, Yes trachea midline and Yes supple Resp: Effort & Inspection: normal respiratory effort and no respiratory distress Auscultation: clear to auscultation bilaterally Cardio: Rate: tachycardic Rhythm: regular rhythm Heart sounds: no gallops, no murmurs and no rubs GI: Palpation (GI): Soft to palpation and Other GI palpation findings present ( Nontender) Auscultation: normal bowel sounds Extrem: General: Yes no pedal edema, No clubbing and No cyanosis Objective Data Labs 07/06/22 05:05 07/06/22 05:05 Labs: Laboratory Results - last 24 hr 07/05/22 07/06/22 07/06/22 11:43 05:03 05:05 WBC 9.9 RBC 2.89 L Hgb 9.5 L Hct 29.0 L MCV 100.3 H MCH 32.9 MCHC 32.8 RDW 14.6 Plt Count 120 L MPV 9.8 Immature Gran % (Auto) 1.9 H Neut % (Auto) 76.1 H Lymph % (Auto) 13.8 L Richardson % (Auto) 7.8 Eos % (Auto) 0.2 Baso % (Auto) 0.2 Lymph # (Auto) 1.4 Richardson # (Auto) 0.8 Eos # (Auto) 0.0 Baso # (Auto) 0.0 Abs Immat Gran (auto) 0.19 H Absolute Neuts (auto) 7.5 Absolute Nucleated RBC 0.000 Nucleated RBC % (auto) 0.0 VBG pH 7.57 H VBG pCO2 33 VBG pO2 57 VBG HCO3 31 H VBG O2 Saturation 87.0 VBG Base Excess 9.4 Sodium 141 Potassium 4.5 Chloride 102 Carbon Dioxide 25 Anion Gap 19 BUN 38 H Creatinine 0.85 Estim Creat Clear Calc 50.7 Estimated GFR > 60 Random Glucose 119 H Calcium 9.5 Phosphorus Magnesium Total Bilirubin AST ALT Alkaline Phosphatase Total Protein Albumin 07/06/22 05:05 WBC RBC Hgb Hct MCV MCH MCHC RDW Plt Count MPV Immature Gran % (Auto) Neut % (Auto) Lymph % (Auto) Richardson % (Auto) Eos % (Auto) Baso % (Auto) Lymph # (Auto) Richardson # (Auto) Eos # (Auto) Baso # (Auto) Abs Immat Gran (auto) Absolute Neuts (auto) Absolute Nucleated RBC Nucleated RBC % (auto) VBG pH VBG pCO2 VBG pO2 VBG HCO3 VBG O2 Saturation VBG Base Excess Sodium 142 Potassium 3.9 Chloride 105 Carbon Dioxide 24 Anion Gap 17 BUN 51 H Creatinine 0.83 Estim Creat Clear Calc 51.9 Estimated GFR > 60 Random Glucose 70 Calcium 9.3 Phosphorus 2.6 L Magnesium 2.0 Total Bilirubin 0.9 AST 30 ALT 25 Alkaline Phosphatase 40 Total Protein 6.2 L Albumin 4.5 Microbiology Microbiology Results: Microbiology 07/04/22 01:06 Blood - Venous Blood Culture - Preliminary No growth after 48 hours. 07/04/22 01:06 Blood - Venous Blood Culture - Preliminary No growth after 48 hours. 07/04/22 Unknown Urine Catheterized - Evans Catheter Urine Culture - Final No growth. Progress Note: A&P Assessment and plan (1) Delirium tremens: Status: Acute (2) HERVE (acute kidney injury): Status: Acute (3) Acute and chronic respiratory failure: Status: Acute (4) YURI on CPAP: Status: Acute (5) COPD (chronic obstructive pulmonary disease): Status: Acute (6) Inflammatory bowel diseases (IBD): Status: Acute Plan Assessment: 67-year-old lady admitted with alteration of mental status requiring intubation for airway protection further complicated by acute renal failure Plan: Neuro: Delirium tremens, itrated of Precedex as tolerated. On phenobarbital protocol. Cardiac: No acute issues. Pulmonary: acute on chronic hypoxic respiratory failure initially required ventilatory support, extubated 07/04/2022. Underlying COPD and YURI on CPAP. Renal: Acute renal failure, resolved. Non oliguric. Continue to monitor renal indices and urine output. Endo: No acute issues. GI: No acute issues. Underlying Crohn's disease. ID: No acute issues Heme/Onc: No acute issues. Psych: No acute issues. Miscellaneous: No acute issues. Prophylaxis: Heparin Diet: regular Quality Stroke Does the patient have a stroke diagnosis?: No VTE Prior VTE?: No VTE Risk Level:: Medical - moderate - high VTE Device Contraindication: N/A - Device Ordered VTE Drug Contraindication: N/A - Med Ordered
--- NOTE | 2022-07-06 17:22 | PM.EVENT ---
Event Note Date of Service: 07/14/22 Event Note: This patient is seen and examined Patient anxious [place] and tremors seems to be improving Vital seems stable Physical exam and assessment and plan coordinated in ICU note today, Agree with the plan in addition: Alcohol withdrawal-continue phenobarb protocol Time Spent With Patient Time: Total time managing care of this patient today ____ minutes.
[2022-07-06] MEDS: Baclofen 20 MG TABLET PO (18:22)
[2022-07-06] MEDS: Gabapentin 300 MG CAPSULE 900 MG PO (18:23)
[2022-07-06] MEDS: Cholecalciferol (Vitamin D3) 25 MCG TABLET PO (20:40)
[2022-07-06] MEDS: Magnesium Oxide 400 MG TABLET PO (20:40)
[2022-07-07] MEDS: Ketorolac Tromethamine 15 MG/ML VIAL IVPUSH (02:11)
[2022-07-07] MEDS: OLANZapine 10 MG TABLET PO (02:12)
[2022-07-07 03:50] VITALS: BP 139/78; PULSE 82; RESP 20; TEMP 36.6; O2SAT 95
[2022-07-07 05:51] VITALS: BMI 19.9
[2022-07-07] MEDS: Omeprazole 20 MG CAPSULE.DR PO (06:07)
[2022-07-07 06:59] LABS: Alanine Aminotransferase 27 U/L (0-31); Albumin Level 4.3 g/dL (3.5-5.0); Alkaline Phosphatase 50 U/L (39-117); Anion Gap 17 (12-20); Aspartate Amino Transferase 27 U/L (5-31); Blood Urea Nitrogen 37 mg/dL (9-16); Calcium 9.3 mg/dL (8.4-10.2); Carbon Dioxide 24 mmol/L (22-29); Chloride 108 mmol/L (96-108); Creatinine Clr Calc Pharmacy 63.5; Estimated Glomerular Filt Rate > 60; Glucose Random 68 mg/dL (60-115); Magnesium 1.9 mg/dL (1.6-2.6); Phosphorus 3.7 mg/dL (2.7-4.5); Potassium 3.6 mmol/L (3.3-5.1); Sodium 145 mmol/L (135-145); Total Protein 6.1 g/dL (6.5-8.0)
[2022-07-07 07:01] LABS: Hematocrit 35.5 % (37.0-47.0); Hemoglobin 11.4 g/dl (12.0-16.0); Mean Corpuscular HGB Conc 32.1 g/dl (31.0-35.0); Mean Corpuscular Hemoglobin 33.3 pg (27.0-33.0); Mean Corpuscular Volume 103.8 fL (80.0-98.0); Mean Platelet Volume 10.2 fL (9.4-12.3); NRBC Pct Auto 0.3 /100WBC (0.0-0.2); Platelet Count 130 X10*3/uL (160-400); Red Blood Count 3.42 X10*6/uL (4.20-5.50); Red Cell Distribution Width 15.1 % (11.0-16.0)
[2022-07-07 07:04] LABS: Anion Gap 17 (12-20); Blood Urea Nitrogen 37 mg/dL (9-16); Calcium 9.2 mg/dL (8.4-10.2); Carbon Dioxide 21 mmol/L (22-29); Chloride 109 mmol/L (96-108); Creatinine Clr Calc Pharmacy 59.9; Estimated Glomerular Filt Rate > 60; Glucose Random 66 mg/dL (60-115); Potassium 3.7 mmol/L (3.3-5.1); Sodium 143 mmol/L (135-145)
[2022-07-07 07:22] VITALS: BP 124/70; PULSE 110; RESP 20; TEMP 36.6; O2SAT 97
[2022-07-07 08:17] LABS: Band Neutrophils Percent 5 % (3-5); Lymphocytes Absolute Manual 1.5 X10*3/uL (1.2-4.9); Lymphocytes Percent Manual 19 % (20-40); Metamyelocytes Absolute 0.4 X10*3/uL; Metamyelocytes Percent 5 %; Monocytes Absolute Manual 0.4 X10*3/uL (0.1-1.2); Monocytes Percent Manual 5 % (2-11); Neutrophils Absolute Manual 5.7 X10*3/uL (2.0-8.3); Neutrophils Percent Manual 66 % (45-73)
[2022-07-07 08:18] LABS: Nucleated Red Blood Cells 1 /100WBC (0-0)
[2022-07-07 08:19] LABS: Acanthocytes 1+ (0-2) /OIF; Macrocytosis 2+ (15-30) /OIF; Platelet Estimate SLIGHTLY DECREASED (NORMAL); Platelet Morphology Comment NORMAL; RBC Morphology NOTED
[2022-07-07 08:20] LABS: Burr Cells 2+ (3-5) /OIF; Ovalocytes 1+ (5-14) /OIF; Schistocytes 1+ (0-2) /OIF; Tear Drop Cells 2+ (3-5) /OIF
[2022-07-07] MEDS: Thiamine HCL 100 MG TABLET 300 MG PO (09:06)
[2022-07-07] MEDS: Baclofen 20 MG TABLET PO ×2 (09:06→20:13)
[2022-07-07] MEDS: Heparin Sodium,Porcine 5,000 UNIT/ML VIAL 5000 UNIT SUBCUT ×3 (09:06→20:14)
[2022-07-07] MEDS: Gabapentin 300 MG CAPSULE 600 MG PO (09:07)
[2022-07-07] MEDS: Loratadine 10 MG TABLET PO (09:07)
[2022-07-07] MEDS: Cholecalciferol (Vitamin D3) 25 MCG TABLET PO ×2 (09:07→20:14)
[2022-07-07] MEDS: Escitalopram Oxalate 10 MG TABLET 15 MG PO (09:07)
[2022-07-07] MEDS: Metoprolol Succinate ER 100 MG TAB.ER.24H PO ×2 (09:07→20:14)
[2022-07-07] MEDS: PHENobarbitaL 15 MG TABLET PO ×2 (09:07→20:14)
[2022-07-07] MEDS: Folic Acid 1 MG TABLET 2 MG PO (09:08)
[2022-07-07] MEDS: Magnesium Oxide 400 MG TABLET PO ×2 (09:08→20:14)
[2022-07-07] MEDS: azaTHIOprine 50 MG TABLET PO ×2 (09:15→20:14)
--- NOTE | 2022-07-07 11:07 | HO.PM.IMPN ---
Subjective Subjective Date of Service: 07/07/22 Interval History: f/u on alcohol withdrawal, post ICU care for alcohol withdrawal inteval history: lucid, c/o diarrhea, and pain takes oxycodone chronically Physical Exam Vital Signs: Vital Signs: Last Vital Signs Temp 97.8 F 07/07/22 07:22 Pulse 110 H 07/07/22 07:22 Resp 20 07/07/22 07:22 BP 124/70 07/07/22 07:22 Pulse Ox 97 07/07/22 07:22 O2 Del Method Room Air 07/07/22 07:22 O2 Flow Rate 2 07/07/22 03:50 FiO2 30 07/04/22 09:00 Oxygen Flow Rate 2 07/03/22 21:33 BMI result Body Mass Index 19.9 Const: Other: General: AO X 3, no acute distress, frail Resp: CTA bilateral CVS: S1,S2,RRR GI: +BS, NT, no distention Skin: No rash Neuro: motor grossly intact Psych: appropriate affect Objective Data Active Medications Acetaminophen (Acetaminophen 325 Mg Tablet) 650 mg PO Q6H PRN PRN Reason: Fever Last Admin: 07/06/22 20:40 Dose: 650 mg Documented By: CODIE Azathioprine (Azathioprine 50 Mg Tablet) 50 mg PO BID [facility] Last Admin: 07/07/22 09:15 Dose: 50 mg Documented By: DANETTE Baclofen (Baclofen 20 Mg Tablet) 20 mg PO TID PRN PRN Reason: Pain, Mild (Pain Scale 1-3) Last Admin: 07/07/22 09:06 Dose: 20 mg Documented By: DANETTE Escitalopram Oxalate (Escitalopram Oxalate 10 Mg Tablet) 15 mg PO DAILY [facility] Last Admin: 07/07/22 09:07 Dose: 15 mg Documented By: DANETTE Folic Acid (Folic Acid 1 Mg Tablet) 2 mg PO DAILY [facility] Last Admin: 07/07/22 09:08 Dose: 2 mg Documented By: DANETTE Gabapentin (Gabapentin 300 Mg Capsule) 600 mg PO DAILY [facility] Last Admin: 07/07/22 09:07 Dose: 600 mg Documented By: DANETTE Gabapentin (Gabapentin 300 Mg Capsule) 900 mg PO BEDTIME [facility] Last Admin: 07/06/22 18:23 Dose: 900 mg Documented By: LONNIE Comments: per MD muir to give dose early Heparin Sodium (Porcine) (Heparin Sodium,Porcine 5,000 Unit/Ml Vial) 5,000 unit SUBCUT TID [facility] Last Admin: 07/07/22 09:06 Dose: 5,000 unit Documented By: DANETTE Ketorolac Tromethamine (Ketorolac Tromethamine 15 Mg/Ml Vial) 15 mg IVPUSH Q6H PRN PRN Reason: Pain, Moderate(Pain Scale 4-6) Last Admin: 07/07/22 02:11 Dose: 15 mg Documented By: ILAN Loratadine (Loratadine 10 Mg Tablet) 10 mg PO DAILY [facility] Last Admin: 07/07/22 09:07 Dose: 10 mg Documented By: DANETTE Magnesium Oxide (Magnesium Oxide 400 Mg Tablet) 400 mg PO BID [facility] Last Admin: 07/07/22 09:08 Dose: 400 mg Documented By: DANETTE Metoprolol Succinate (Metoprolol Succinate Er 100 Mg Tab.Er.24h) 100 mg PO BID [facility]; Protocol Last Admin: 07/07/22 09:07 Dose: 100 mg Documented By: DANETTE Non-Formulary Medication (Glycopyrrolate-Formoterol [Bevespi Aerosphere]) 2 puff INHALE BID [facility] Non-Formulary Medication (Budesonide) 9 mg PO DAILY [facility] Non-Formulary Medication (Niacinamide) 500 mg PO BID [facility] Omeprazole (Omeprazole 20 Mg Capsule.Dr) 20 mg PO DAILY@0630 [facility] Last Admin: 07/07/22 06:07 Dose: 20 mg Documented By: ILAN Pharmacy Consult (Consult Rx Etoh Phenob Im/Po) 1 each MISCELLANE ONCE PRN; Protocol PRN Reason: Consult order Phenobarbital (Phenobarbital 15 Mg Tablet) 15 mg PO BID [facility] Stop: 07/08/22 21:01 Last Admin: 07/07/22 09:07 Dose: 15 mg Documented By: DANETTE Phenobarbital (Phenobarbital 15 Mg Tablet) 15 mg PO DAILY [facility] Stop: 07/10/22 09:01 Thiamine HCl (Thiamine Hcl 100 Mg Tablet) 300 mg PO DAILY [facility] Last Admin: 07/07/22 09:06 Dose: 300 mg Documented By: DANETTE Vitamin D (Cholecalciferol (Vitamin D3) 25 Mcg Tablet) 25 mcg PO BID [facility] Last Admin: 07/07/22 09:07 Dose: 25 mcg Documented By: DANETTE Labs 07/07/22 06:12 07/07/22 06:12 Labs: Laboratory Results - last 24 hr 07/07/22 07/07/22 07/07/22 06:11 06:12 06:12 MCV 103.8 H MCH 33.3 H MCHC 32.1 RDW 15.1 Plt Count 130 L MPV 10.2 Immature Gran % (Auto) Cancelled Neut % (Auto) Cancelled Lymph % (Auto) Cancelled Lares % (Auto) Cancelled Eos % (Auto) Cancelled Baso % (Auto) Cancelled Lymph # (Auto) Cancelled Lares # (Auto) Cancelled Eos # (Auto) Cancelled Baso # (Auto) Cancelled Abs Immat Gran (auto) Cancelled Absolute Neuts (auto) Cancelled Absolute Nucleated RBC 0.020 H Nucleated RBC % (auto) 0.3 H Neutrophils % (Manual) 66 Band Neutrophils % 5 Lymphocytes % (Manual) 19 L Monocytes % (Manual) 5 Metamyelocytes % 5 Abs Neuts (Manual) 5.7 Lymphocytes # (Manual) 1.5 Monocytes # (Manual) 0.4 Metamyelocytes # 0.4 Nucleated RBCs 1 H Platelet Estimate SLIGHTLY DECREASED Plt Morphology Comment NORMAL RBC Morphology NOTED Macrocytosis 2+ (15-30) Tear Drop Cells 2+ (3-5) Ovalocytes 1+ (5-14) Jachin Cells 2+ (3-5) Acanthocytes (Spur) 1+ (0-2) Schistocytes 1+ (0-2) Anion Gap 17 17 Estim Creat Clear Calc 63.5 59.9 Estimated GFR > 60 > 60 Random Glucose 68 66 Calcium 9.3 9.2 Phosphorus 3.7 Magnesium 1.9 Total Bilirubin 1.0 AST 27 ALT 27 Alkaline Phosphatase 50 Total Protein 6.1 L Albumin 4.3 Assessment and Plan (1) Delirium tremens: Status: Acute Plan 67-year-old lady with underlying history of COPD 2 L of supplemental oxygen, YURI, Crohn's status post prior resections, anxiety, alcohol use admitted 07/04/2022 with mechanical fall and alteration of mental status patient intubated in the emergency room for airway protection and transferred to intensive care unit. in the intensive care unit patient hydrated with improvement in underlying acute kidney injury and patient extubated on 07/04/2022, however she developed delirium tremens requiring Precedex drip. Presently doing well, no confusion, Alcohol withdrawal, delirium tremens s/p intubation, precedex, now doing well, contintinue Phenobarbital HERVE resolved, HTN controlled, continue metoprolol fall d/t alcohol use, PT eval chronic pain on oxy at home, restart Time Spent With Patient Time: Total time managing care of this patient today ____ minutes. Quality Stroke Does the patient have a stroke diagnosis?: No VTE Prior VTE?: No VTE Risk Level:: Medical - moderate - high VTE Device Contraindication: N/A - Device Ordered VTE Drug Contraindication: N/A - Med Ordered
[2022-07-07 11:19] VITALS: BP 119/72; PULSE 107; RESP 18; TEMP 36.7; O2SAT 98
[2022-07-07] MEDS: Loperamide HCl 2 MG CAPSULE PO (11:30)
[2022-07-07] MEDS: oxyCODONE HCl Immed Release 5 MG TABLET PO ×3 (11:30→20:13)
--- NOTE | 2022-07-07 13:39 | ECG_ITS ---
Test Reason : ELEVATED HEART RATE Blood Pressure : / mmHG Vent. Rate : 131 BPM Atrial Rate : 131 BPM P-R Int : 126 ms QRS Dur : 070 ms QT Int : 300 ms P-R-T Axes : 047 008 073 degrees QTc Int : 443 ms Sinus tachycardia Otherwise normal ECG When compared with ECG of 04-JUL-2022 18:07, Vent. rate has increased BY 71 BPM Referred By: Anup Soni Electronically Signed By:JOSE DAVALOS
[2022-07-07 13:50] VITALS: PULSE 150; O2SAT 90
[2022-07-07 15:14] VITALS: BP 118/59; PULSE 115; RESP 17; TEMP 37.1; O2SAT 94
--- NOTE | 2022-07-07 15:45 | MHC.CM.PN ---
PT is recommending STR; CM updated Patient's first SNF choice referral to [facility]. CM will follow.
[2022-07-07 19:28] VITALS: BP 104/62; PULSE 112; RESP 17; TEMP 36.7; O2SAT 97
[2022-07-07] MEDS: Gabapentin 300 MG CAPSULE 900 MG PO (20:14)
[2022-07-08] VITALS (7 sets, daily range): BP systolic 115–169; BP diastolic 56–71; PULSE 93–119; RESP 12–20; TEMP 36.7–37.2; O2SAT 97–100; BMI 19.4
[2022-07-08] MEDS: oxyCODONE HCl Immed Release 5 MG TABLET PO ×4 (09:09→21:46)
[2022-07-08] MEDS: Thiamine HCL 100 MG TABLET 300 MG PO (09:09)
[2022-07-08] MEDS: Escitalopram Oxalate 10 MG TABLET 15 MG PO (09:09)
[2022-07-08] MEDS: Loratadine 10 MG TABLET PO (09:10)
[2022-07-08] MEDS: Heparin Sodium,Porcine 5,000 UNIT/ML VIAL 5000 UNIT SUBCUT ×3 (09:10→21:43)
[2022-07-08] MEDS: Gabapentin 300 MG CAPSULE 600 MG PO (09:10)
[2022-07-08] MEDS: Magnesium Oxide 400 MG TABLET PO ×2 (09:10→21:42)
[2022-07-08] MEDS: Folic Acid 1 MG TABLET 2 MG PO (09:10)
[2022-07-08] MEDS: Metoprolol Succinate ER 100 MG TAB.ER.24H PO ×2 (09:10→21:42)
[2022-07-08] MEDS: PHENobarbitaL 15 MG TABLET PO ×2 (09:10→21:42)
[2022-07-08] MEDS: Cholecalciferol (Vitamin D3) 25 MCG TABLET PO ×2 (09:10→21:42)
[2022-07-08] MEDS: azaTHIOprine 50 MG TABLET PO ×2 (09:10→21:43)
--- NOTE | 2022-07-08 10:15 | P.PNIM_ITS ---
Subjective Subjective Date of Service: 07/08/22 Interval History: f/u on alcohol withdrawal, post ICU care for alcohol withdrawal inteval history: lucid, and feels better Physical Exam Vital Signs: Vital Signs: Last Vital Signs Temp 98.7 F 07/08/22 07:27 Pulse 98 07/08/22 07:27 Resp 12 07/08/22 07:27 BP 124/66 07/08/22 07:27 Pulse Ox 100 07/08/22 07:27 O2 Del Method Nasal Cannula 07/08/22 07:27 O2 Flow Rate 2 07/08/22 07:27 FiO2 30 07/04/22 09:00 Oxygen Flow Rate 2 07/03/22 21:33 BMI result Body Mass Index 19.4 Const: Other: General: AO X 3, no acute distress, frail Resp: CTA bilateral CVS: S1,S2,RRR GI: +BS, NT, no distention Skin: No rash Neuro: motor grossly intact Psych: appropriate affect Objective Data Active Medications Acetaminophen (Acetaminophen 325 Mg Tablet) 650 mg PO Q6H PRN PRN Reason: Fever Last Admin: 07/06/22 20:40 Dose: 650 mg Documented By: CODIE Azathioprine (Azathioprine 50 Mg Tablet) 50 mg PO BID [facility] Last Admin: 07/08/22 09:10 Dose: 50 mg Documented By: RAHEL Baclofen (Baclofen 20 Mg Tablet) 20 mg PO TID PRN PRN Reason: Pain, Mild (Pain Scale 1-3) Last Admin: 07/07/22 20:13 Dose: 20 mg Documented By: LUIS Escitalopram Oxalate (Escitalopram Oxalate 10 Mg Tablet) 15 mg PO DAILY [facility] Last Admin: 07/08/22 09:09 Dose: 15 mg Documented By: RAHEL Folic Acid (Folic Acid 1 Mg Tablet) 2 mg PO DAILY [facility] Last Admin: 07/08/22 09:10 Dose: 2 mg Documented By: RAHEL Gabapentin (Gabapentin 300 Mg Capsule) 600 mg PO DAILY [facility] Last Admin: 07/08/22 09:10 Dose: 600 mg Documented By: RAHEL Gabapentin (Gabapentin 300 Mg Capsule) 900 mg PO BEDTIME [facility] Last Admin: 07/07/22 20:14 Dose: 900 mg Documented By: LUIS Heparin Sodium (Porcine) (Heparin Sodium,Porcine 5,000 Unit/Ml Vial) 5,000 unit SUBCUT TID [facility] Last Admin: 07/08/22 09:10 Dose: 5,000 unit Documented By: RAHEL Ketorolac Tromethamine (Ketorolac Tromethamine 15 Mg/Ml Vial) 15 mg IVPUSH Q6H PRN PRN Reason: Pain, Moderate(Pain Scale 4-6) Last Admin: 07/07/22 02:11 Dose: 15 mg Documented By: ILAN Loperamide HCl (Loperamide Hcl 2 Mg Capsule) 2 mg PO Q4H PRN PRN Reason: diarreha Last Admin: 07/07/22 11:30 Dose: 2 mg Documented By: DANETTE Loratadine (Loratadine 10 Mg Tablet) 10 mg PO DAILY [facility] Last Admin: 07/08/22 09:10 Dose: 10 mg Documented By: RAHEL Magnesium Oxide (Magnesium Oxide 400 Mg Tablet) 400 mg PO BID [facility] Last Admin: 07/08/22 09:10 Dose: 400 mg Documented By: RAHEL Metoprolol Succinate (Metoprolol Succinate Er 100 Mg Tab.Er.24h) 100 mg PO BID [facility]; Protocol Last Admin: 07/08/22 09:10 Dose: 100 mg Documented By: RAHEL Non-Formulary Medication (Glycopyrrolate-Formoterol [Bevespi Aerosphere]) 2 puff INHALE BID [facility] Non-Formulary Medication (Budesonide) 9 mg PO DAILY [facility] Non-Formulary Medication (Niacinamide) 500 mg PO BID [facility] Omeprazole (Omeprazole 20 Mg Capsule.Dr) 20 mg PO DAILY@0630 [facility] Last Admin: 07/08/22 06:24 Dose: Not Given Documented By: LUIS Non-Admin Reason: Patient Refused Oxycodone HCl (Oxycodone Hcl Immed Release 5 Mg Tablet) 5 mg PO Q4H PRN PRN Reason: Pain, Severe (Pain Scale 7-10) Last Admin: 07/08/22 09:09 Dose: 5 mg Documented By: RAHEL Pharmacy Consult (Consult Rx Etoh Phenob Im/Po) 1 each MISCELLANE ONCE PRN; Protocol PRN Reason: Consult order Phenobarbital (Phenobarbital 15 Mg Tablet) 15 mg PO BID [facility] Stop: 07/08/22 21:01 Last Admin: 07/08/22 09:10 Dose: 15 mg Documented By: RAHEL Phenobarbital (Phenobarbital 15 Mg Tablet) 15 mg PO DAILY [facility] Stop: 07/10/22 09:01 Thiamine HCl (Thiamine Hcl 100 Mg Tablet) 300 mg PO DAILY [facility] Last Admin: 07/08/22 09:09 Dose: 300 mg Documented By: RAHEL Vitamin D (Cholecalciferol (Vitamin D3) 25 Mcg Tablet) 25 mcg PO BID [facility] Last Admin: 07/08/22 09:10 Dose: 25 mcg Documented By: RAHEL Labs 07/07/22 06:12 07/07/22 06:12 Labs: Laboratory Results - last 24 hr 07/07/22 06:12 Smear Path Review SEE NOTE Assessment and Plan (1) Delirium tremens: Status: Acute Plan 67-year-old lady with underlying history of COPD 2 L of supplemental oxygen, YURI, Crohn's status post prior resections, anxiety, alcohol use admitted 07/05/19 with mechanical fall and alteration of mental status patient intubated in the emergency room for airway protection and transferred to intensive care unit. in the intensive care unit patient hydrated with improvement in underlying acute kidney injury and patient extubated on 07/04/2022, however she developed delirium tremens requiring Precedex drip. Presently doing well, no confusion, Alcohol withdrawal, delirium tremens s/p intubation, precedex, now doing well, contintinue Phenobarbital, no signs of withdrawal at this time HERVE resolved, HTN controlled, continue metoprolol fall d/t alcohol use, PT recommends STR chronic pain on oxy at home, restart need for inapteint: management of alcohol withdrawal and need of rehab Time Spent With Patient Time: Total time managing care of this patient today ____ minutes. Quality Stroke Does the patient have a stroke diagnosis?: No VTE Prior VTE?: No VTE Risk Level:: Medical - moderate - high VTE Device Contraindication: N/A - Device Ordered VTE Drug Contraindication: N/A - Med Ordered
--- NOTE | 2022-07-08 13:33 | MHC.CM.PN ---
[facility] is not able to accept Patient while she is requiring a camera in her room. JANET relayed this message to who told CM to remove the camera from the room. MD indicated that an order is not needed to remove the camera and JANET informed MD that CM informed RN to remove the camera. CM will follow.
--- NOTE | 2022-07-08 13:49 | PC.NURSE ---
report received from overnight RN, durable medical equipment repairer per APR. Pt a+ox4, forgetful at times. Pleasant and cooperative throughout the day, ringing appropriately. C/o generalized pain, durable medical equipment repairer per APR. Call johnson within reach, safety precautions in place, hourly rounding.
[2022-07-08] MEDS: Gabapentin 300 MG CAPSULE 900 MG PO (21:42)
[2022-07-09 04:00] VITALS: BP 138/68; PULSE 103; RESP 20; TEMP 36.7; O2SAT 100
[2022-07-09] MEDS: Omeprazole 20 MG CAPSULE.DR PO (05:34)
[2022-07-09] MEDS: oxyCODONE HCl Immed Release 5 MG TABLET PO (05:34)
[2022-07-09 06:00] VITALS: BMI 19.8
--- NOTE | 2022-07-09 06:24 | PC.NURSE ---
PT a&o*4 although sometimes forgetful. Pleasant, cooperative, and calls appropriately. Complains of pain from various bruises, medicated per MAR. Respirations steady, will continue to monitor.
[2022-07-09 07:34] VITALS: BP 125/59; PULSE 110; RESP 20; TEMP 36.8; O2SAT 99
--- NOTE | 2022-07-09 08:57 | PC.RT ---
pt has not been on cpap in days. pt has been refusing. therefore RT will pull the machine from room and let MD aware.
[2022-07-09] MEDS: azaTHIOprine 50 MG TABLET PO (09:03)
[2022-07-09] MEDS: Thiamine HCL 100 MG TABLET 300 MG PO (09:03)
[2022-07-09] MEDS: PHENobarbitaL 15 MG TABLET PO (09:03)
[2022-07-09] MEDS: Gabapentin 300 MG CAPSULE 600 MG PO (09:04)
[2022-07-09] MEDS: Cholecalciferol (Vitamin D3) 25 MCG TABLET PO (09:04)
[2022-07-09] MEDS: Magnesium Oxide 400 MG TABLET PO (09:04)
[2022-07-09] MEDS: Loratadine 10 MG TABLET PO (09:05)
[2022-07-09] MEDS: Escitalopram Oxalate 10 MG TABLET 15 MG PO (09:05)
[2022-07-09] MEDS: Folic Acid 1 MG TABLET 2 MG PO (09:05)
[2022-07-09] MEDS: Metoprolol Succinate ER 100 MG TAB.ER.24H PO (09:05)
[2022-07-09] MEDS: Heparin Sodium,Porcine 5,000 UNIT/ML VIAL 5000 UNIT SUBCUT (09:06)
[2022-07-09] MEDS: Ketorolac Tromethamine 15 MG/ML VIAL IVPUSH (09:06)
--- NOTE | 2022-07-09 09:40 | PM.DS ---
DS: Providers Provider Date of Service: 07/09/22 Date of admission: 07/04/22 01:01 Primary care physician: Zacarias Montero MD DS: Diagnosis Discharge Diagnosis (1) Delirium tremens: Status: Acute DS: Summary Hospital Course Hospital Course: Hospital course: 67-year-old lady with underlying history of COPD 2 L of supplemental oxygen, YURI, Crohn's status post prior resections, anxiety, alcohol use admitted 07/04/2022 with mechanical fall and alteration of mental status patient intubated in the emergency room for airway protection and transferred to intensive care unit. in the intensive care unit patient hydrated with improvement in underlying acute kidney injury and patient extubated on 07/04/2022, however she developed delirium tremens requiring Precedex drip. Presently doing well, no confusion, Alcohol withdrawal, delirium tremens, she was so agitated so that she required intuabation in the ICU and was treated with precedex and ultimately did well and was successful extubated and put on Phenobarbital and alcohol withdrawal has resolved. Permanent alcohol cessation has been discussed with her at [facility] HERVE resolved--was probably due to pre renal azoetemia, creatined peaked at 2.68 and now 0.71 HTN controlled, continue metoprolol fall d/t alcohol use, PT recommends STR chronic pain on oxy at home, restart To short term rehab for less than 30 days Time Spent with Patient Time attestation: Total time managing care of this patient today ____ minutes. Discharge coordination time: Greater than 30 minutes Quality: Safe Use of Opioids Does Pt have an Active Cancer Diagnosis on the Problem List?: No Quality: Stroke Does the patient have a stroke diagnosis?: No Physical Exam Vital Signs: Vital Signs: Last Vital Signs Temp 98.3 F 07/09/22 07:34 Pulse 110 H 07/09/22 07:34 Resp 20 07/09/22 07:34 BP 125/59 L 07/09/22 07:34 Pulse Ox 99 07/09/22 07:34 O2 Del Method Nasal Cannula 07/09/22 07:34 O2 Flow Rate 2 07/09/22 07:34 FiO2 30 07/04/22 09:00 Oxygen Flow Rate 2 07/03/22 21:33 BMI result Body Mass Index 19.8 Discharge Plan Discharge Anticipated Discharge Date/Time: 07/09/22 09:52 Patient Disposition: Xfer SNF Discharge Diagnosis: alcohol withdrawal, Referrals: [facility] [Outside] - 1 Week Zacarias Montero MD [Primary Care Provider] - 1 Week Discharge Medications: Continued Bevespi Aerosphere 9-4.8 mcg HFA aerosol inhaler 2 puff inhalation BID Qty: 10.7 0RF gabapentin 300 mg Capsule 900 mg PO BEDTIME baclofen 20 mg tablet 20 mg PO TID PRN (Reason: Pain) magnesium oxide 400 mg magnesium Capsule 400 mg PO BID (DME) walker Misc See Rx Instructions .ROUTE .MEDSUPPLY Qty: 1 0RF Rx Instructions: As directed alendronate 70 mg tablet 70 mg PO QWEEK potassium chloride 10 mEq tablet extended release 10 meq PO BID gabapentin 300 mg capsule 600 mg PO DAILY omeprazole 20 mg capsule,delayed release(DR/EC) 20 mg PO DAILY oxycodone 15 mg tablet 15 mg PO QID PRN (Reason: Pain) niacinamide 500 mg tablet 500 mg PO BID budesonide 3 mg capsule,delayed,extend.release 9 mg PO DAILY metoprolol succinate 100 mg tablet extended release 24 hr 100 mg PO BID azathioprine 50 mg tablet 100 mg PO BID citalopram 20 mg tablet 30 mg PO DAILY albuterol sulfate 90 mcg/actuation HFA aerosol inhaler 2 puff inhalation Q4H PRN (Reason: wheezing) cholecalciferol (vitamin D3) 25 mcg (1,000 unit) capsule 25 mcg PO BID (DME) [place] [facility] Comf Protect Med Misc See Rx Instructions .Route Qty: 90 0RF Rx Instructions: Change 3 times a day cetirizine [Zyrtec] 10 mg tablet 10 mg PO DAILY 30 Days Qty: 30 6RF Discharge Orders: Discharge Order (Routine); Ordered 07/09/22 Ordered By: Anup Catalan Diet: Advance to usual diet Activity on Discharge: As tolerated Stand Alone Forms: Patient Portal Discharge page Care Plan Goals: Full recovery from alcohol withdrawal Health Concerns: chronic alcohol use alcohol withdrawal DTs Plan of Treatment: Avoid alcohol, to short term rehab for less than 30 days Assessment: as above
--- NOTE | 2022-07-09 10:26 | MHC.CM.PN ---
Patient has been medically cleared for dc to SNF/STR today. Patient will dc to her first choice SNF/[facility] today at 2PM, via [facility]. CM met with Patient at bedside and addressed exit IMM with her,original was given to Patient and a copy has been placed on the chart. CM has left a voice message for Patient's Brother/Joaquin @ [phone], informing him of the dc plan.
[2022-07-09 11:17] VITALS: BP 116/58; PULSE 102; RESP 20; TEMP 36.6; O2SAT 97
[2022-07-09 12:04] LABS: COVID-19 Test Negative (Negative); IDNOW Serial# BCCEAD1C
[2022-07-09] MEDS: Baclofen 20 MG TABLET PO (14:32)
== END 2022-07-09 15:00 | disposition skilled nursing facility (03) | DRG 640 ==
LOC: HO.ED 22:22 → HO.EDOVER 07-04 01:08 → HO.ICU 07-04 01:17 → HO.IMC 07-06 11:25
PROVIDERS: Internal Medicine; Internal Medicine Pulmonary Disease; Admitting Provider Registered Nurse Community Health; Emergency Provider Emergency Medicine Emergency Medical Services; PCP Internal Medicine; Visit Provider Internal Medicine
DX: E86.0 Dehydration (principal); J96.21 Acute and chronic respiratory failure with hypoxia; N17.9 Acute kidney failure, unspecified; F10.231 Alcohol dependence with withdrawal delirium; K50.90 Crohn's disease, unspecified, without complications; Z99.81 Dependence on supplemental oxygen; J43.9 Emphysema, unspecified; I10 Essential (primary) hypertension; G89.29 Other chronic pain; G47.33 Obstructive sleep apnea (adult) (pediatric); Z20.822 Contact with and (suspected) exposure to COVID-19; Z79.52 Long term (current) use of systemic steroids; Z79.899 Other long term (current) drug therapy
CPT/HCPCS: 36415; 70450; 71045; 71250; 72125; 73070; 73562; 74176; 80048; 80053; 80076; 80307; 81001; 82803; 83605; 83735; 84100; 84484; 85007; 85025; 85027; 87040; 87086; 87635; 93005; 94002; 94003; 94640; 97163; 99285; C1758; J0330; J0696; J1643; J1885; J1940; J2250; J2560; J2920; P9047

== ENCOUNTER 2022-10-21 10:02 | Outpatient (AMB) | payer MEDICARE, MEDICAID, SELFPAY ==
--- NOTE | 2022-10-21 10:20 | A.OFFVIS_ITS ---
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 She continues to have dyspnea on exertion. Nhoi-te-orcojuos severity. Does use her inhalers regularly. She does feel the difference if she misses a dose. She did have pulmonary function studies recently demonstrating mild obstructive ventilatory defect as well as a mild restrictive ventilatory defect along with a moderate diffusion impairment. We did also get a CT scan of the chest demonstrating that elevation of the right hemidiaphragm which resulted in her restrictive ventilatory defect along with her worsening dyspnea symptoms. In regards to his sleep apnea the patient is using oxygen at nighttime. She could not tolerate the CPAP. She also has a small portable oxygen concentrator that she uses during the daytime with activity. 03/11/2021 the patient is here for a pulmonary follow-up visit. Overall she is feeling a lot better from a respiratory status. She has been participating very well in pulmonary rehabilitation. Unfortunately she started developing significant pelvic discomfort and abdominal discomfort and she had to stop. She continues with current respiratory therapy. She has not had any exacerbations of her COPD. She has been stable on the current medications. Unfortunate she has had issues with her Crohn's. She continues to have episodes of abdominal pain cramping. She has also has significant weight loss. Now she is dealing with issues with bilateral nephrolithiasis and she is scheduled to undergo lithotripsy. She had this problem now for some time. Back in June she was scheduled to undergo a procedure but developed significant breathing issues. but at this point the patient is doing a lot better. She continues to use her oxygen with activity and sleep. This has been affecting beneficial. The patient is optimized from a respiratory status. She understands that because of her underlying conditions she does have increased risk for perioperative pulmonary complications. the patient is planned to have surgery next week. At this point she is medically optimized and is able to proceed with surgery Under general anesthesia. 08/11/2021 the patient is here for a pulmonary follow-up visit. Since we last spoke she has had a very eventful few months. She did undergo her lithotripsy but then ended up with a complicated UTI. She was admitted to the hospital numerous times. The patient is starting to feel better. She did go to rehabilitation 4. At time. She has lost a lot of muscle mass. She has also lost significant amount of weight. Unfortunately, she is also having issues with her inflammatory bowel disease and diarrhea. She has incontinence of both stool and urine. Along with her respiratory failure this makes it very hard for her to get to a bathroom. She is very embarrassed. she has been having some difficulties getting her adult diapers prescribed. I do believe that she is decompensating physically and appears to have more needs. Recently she did have a bad fall because of the issue of her diarrhea causing significant discomfort. I am concerned about her home safety. I did recommend she can looking to a PACE program. [facility] will be a good option for her. I did give her the information to call to see if she has a candidate. Will respiratory status she continues use her oxygen with good effect. She continues use her respiratory medicines also with good effect. 04/15/2022 the patient is here for a pulmonary follow-up visit. She continues to do well from a respiratory status. She recently had a hip fracture and did need to have a longer stay at rehab to recover from that. She did very well. She is maintaining her weight which is good. She developed muscle mass and she is feeling better overall. She still has leg weakness and numbness. She will be following up with Neurology soon. She continues use gabapentin. This does help her sleep at nighttime. She also takes a for neuropathy. She needs to continue getting that medication and should be able to get it from her primary care doctor. I will send right now just to make sure she has a. She is also working with her GI doctors. Her inflammatory bowel disease appears to be stable. At nighttime she is using oxygen with good effect. She is also using oxygen with activity with good effect. The oxygen therapy continues to be affecting beneficial. Will follow-up in 6-8 months or sooner if she develops any worsening issues. 10/21/2022 the patient is here for pulmonary follow-up visit. Back in June of this year the patient developed altered mental status. She had a tox screen that was positive for both opiates, benzos and also THC. She was agitated and ultimately intubated for her agitation. She was briefly in the ICU was able to be extuba rodrigo. She was upset because she does have a DNR order. I did review with her and I added to the chart. The patient continues on respiratory therapy with good response. She continues on the oxygen with activity and sleep. This has been affecting beneficial. We did review her CT scan of the chest that she had while in the hospital. Demonstrated emphysema but otherwise no evidence of any PE or any parenchymal lung disease to be concerned about. She does have other extrapulmonary manifestations such as kidney stones that she is aware of for this point will continue with current respiratory therapy. She is going to avoid marijuana because of the acute delirium. [facility] Medical History (Updated 07/17/22 @ 00:03 by Brian Durham) Chronic respiratory failure Chronic restrictive lung disease Colitis COPD (chronic obstructive pulmonary disease) Diarrhea Dysphagia Emphysema of lung Infection due to Stenotrophomonas maltophilia Inflammatory bowel diseases (IBD) Insomnia YURI on CPAP Osteoporosis Pre-op chest exam Surgical History History of bowel resection Hx of cholecystectomy S/P complete hysterectomy Social History Household Members: Other Household Members Other:: granddaughter Patient Tobacco Use Status: Former Tobacco user Tobacco use type: Cigarette Years Smoked: 15 yrs ago Second Hand Smoke Exposure: No Substance Use Type: Marijuana Current occupational status: unemployed Review of Systems Const Denies night sweats and Denies weight loss ENT Denies change in voice, Denies lip swelling, Denies mouth pain, Reports nasal congestion, Reports nasal discharge and Denies tongue swelling Card Denies chest pain and Reports dyspnea on exertion Resp Reports cough, Reports dyspnea on exertion and Denies wheezing GI Reports fecal incontinence and Reports diarrhea Reports nocturia and Reports urinary incontinence Musc Denies no additional complaints, Reports abnormal gait, Reports back pain and Reports myalgias Neuro Denies Neuro-related abnormal movements and Reports abnormal gait Psych Denies no additional complaints Tato/Lymph Denies easy bleeding and Denies lymphadenopathy Aller/Immun Denies lip swelling, Denies tongue swelling and Denies wheezing Physical Exam Vital Signs: Last Vital Signs Pulse 85 10/21/22 10:22 BP 118/60 10/21/22 10:22 Pulse Ox 93 10/21/22 10:22 Oxygen Delivery Method Room Air 10/21/22 10:22 BMI result Body Mass Index 20.8 Const General: alert Neck Neck: Yes normal visual inspection, Yes full ROM and Yes no lymphadenopathy Chest Chest palpation & inspection: normal inspection of the chest Resp Auscultation: no wheezes and diminished lung sounds Cardio Rate: regular rate Rhythm: regular rhythm Heart sounds: S1 normal heart sound present and S2 normal heart sound present GI Palpation (GI): Soft to palpation and nontender Auscultation: normal bowel sounds Skin General skin exam: rashes and/or lesions noted Assessment & Plan Assessment & Plan (1) Chronic restrictive lung disease: Code(s): J98.4 - Other disorders of lung (2) Chronic respiratory failure: Code(s): J96.10 - Chronic respiratory failure, unspecified whether with hypoxia or hypercapnia Qualifiers: Respiratory failure complication: hypoxia Qualified Code(s): J96.11 - Chronic respiratory failure with hypoxia (3) YURI on CPAP: Code(s): G47.33 - Obstructive sleep apnea (adult) (pediatric); Z99.89 - Dependence on other enabling machines and devices (4) COPD (chronic obstructive pulmonary disease): Code(s): J44.9 - Chronic obstructive pulmonary disease, unspecified (5) Dysphagia: Code(s): R13.10 - Dysphagia, unspecified (6) Insomnia: Code(s): G47.00 - Insomnia, unspecified Plan Continue PO budesonide and Bevespi DAHIANA as needed Oxygen 2L with activity continue pulmonary rehab when able Continue oxygen at nighttime while sleeping F/U 6 months Coding Level of Care Code Est Pt Level 4 (57392) Diagnoses Chronic restrictive lung disease J98.4 Chronic respiratory failure J96.11 Respiratory failure complication: hypoxia YURI on CPAP G47.33; Z99.89 COPD (chronic obstructive pulmonary disease) J44.9 Dysphagia R13.10 Insomnia G47.00 Time Spent (min) 17
[2022-10-21 10:22] VITALS: BP 118/60; PULSE 85; O2SAT 93; BMI 20.8
== END 2022-10-21 10:47 | disposition home or self-care (01) ==
PROVIDERS: PCP Internal Medicine; Visit Provider Hospitalist
DX: J98.4 Other disorders of lung (principal); J96.11 Chronic respiratory failure with hypoxia; G47.33 Obstructive sleep apnea (adult) (pediatric); Z99.89 Dependence on other enabling machines and devices; J44.9 Chronic obstructive pulmonary disease, unspecified; R13.10 Dysphagia, unspecified; G47.00 Insomnia, unspecified
CPT/HCPCS: 99214

== ENCOUNTER → 2022-10-21 10:02 | Outpatient (BNVA) | payer MEDICARE, MEDICAID, SELFPAY | PROVIDERS: PCP Internal Medicine; Visit Provider Hospitalist | DX: J98.4 Other disorders of lung (principal); J96.11 Chronic respiratory failure with hypoxia; J44.9 Chronic obstructive pulmonary disease, unspecified; R13.10 Dysphagia, unspecified; G47.33 Obstructive sleep apnea (adult) (pediatric); G47.00 Insomnia, unspecified; Z79.899 Other long term (current) drug therapy; Z99.89 Dependence on other enabling machines and devices | CPT/HCPCS: 99212 ==

== ENCOUNTER 2023-08-27 14:18 | Outpatient (AMB) | payer MEDICARE, MEDICAID, SELFPAY ==
[2023-08-27 14:27] VITALS: PULSE 91; O2SAT 93; BMI 19.2
--- NOTE | 2023-08-27 14:27 | A.OFFVIS_ITS ---
Vital Signs 08/27/23 14:27 Height 5 ft 2 in Weight 104 lb 11.513 oz BMI 19.2 Pulse 91 Pulse Source Pulse Oximeter Pulse Oximetry (%) 93 Oxygen Delivery Method Room Air Intake Visit Reasons: copd Development Advisor Required: No Allergies furosemide [From LASIX] Allergy (Intermediate, Verified 08/27/23 14:28) SWEATING lorazepam [LORAZEPAM] Allergy (Intermediate, Verified 08/27/23 14:28) RESTLESS LEG prochlorperazine [From COMPAZINE] Allergy (Intermediate, Verified 08/27/23 14:28) RESTLESS LEG Sulfa (Sulfonamide Antibiotics) [SULFA (SULFONAMIDE ANTIBIOTICS)] Allergy (Mild, Verified 08/27/23 14:28) Hives and Rash HPI Comments Details: The patient is a 67 y/o woman with a history of chronic Crohn's disease with multiple complications steroid dependent in addition to COPD. She continues to have dyspnea on exertion. Exym-du-aoihsoog severity. Does use her inhalers regularly. She does feel the difference if she misses a dose. She did have pulmonary function studies recently demonstrating mild obstructive ventilatory defect as well as a mild restrictive ventilatory defect along with a moderate diffusion impairment. We did also get a CT scan of the chest demonstrating that elevation of the right hemidiaphragm which resulted in her restrictive ventilatory defect along with her worsening dyspnea symptoms. In regards to his sleep apnea the patient is using oxygen at nighttime. She could not tolerate the CPAP. She also has a small portable oxygen concentrator that she uses during the daytime with activity. 03/11/2021 the patient is here for a pulmonary follow-up visit. Overall she is feeling a lot better from a respiratory status. She has been participating very well in pulmonary rehabilitation. Unfortunately she started developing significant pelvic discomfort and abdominal discomfort and she had to stop. She continues with current respiratory therapy. She has not had any exacerbations of her COPD. She has been stable on the current medications. Unfortunate she has had issues with her Crohn's. She continues to have episodes of abdominal pain cramping. She has also has significant weight loss. Now she is dealing with issues with bilateral nephrolithiasis and she is scheduled to undergo lithotripsy. She had this problem now for some time. Back in June she was scheduled to undergo a procedure but developed significant breathing issues. but at this point the patient is doing a lot better. She continues to use her oxygen with activity and sleep. This has been affecting beneficial. The patient is optimized from a respiratory status. She understands that because of her underlying conditions she does have increased risk for perioperative pulmonary complications. the patient is planned to have surgery next week. At this point she is medically optimized and is able to proceed with surgery Under general anesthesia. 08/11/2021 the patient is here for a pulmonary follow-up visit. Since we last spoke she has had a very eventful few months. She did undergo her lithotripsy but then ended up with a complicated UTI. She was admitted to the hospital numerous times. The patient is starting to feel better. She did go to rehabilitation 4. At time. She has lost a lot of muscle mass. She has also lost significant amount of weight. Unfortunately, she is also having issues with her inflammatory bowel disease and diarrhea. She has incontinence of both stool and urine. Along with her respiratory failure this makes it very hard for her to get to a bathroom. She is very embarrassed. she has been having some difficulties getting her adult diapers prescribed. I do believe that she is decompensating physically and appears to have more needs. Recently she did have a bad fall because of the issue of her diarrhea causing significant discomfort. I am concerned about her home safety. I did recommend she can looking to a PACE program. [facility] will be a good option for her. I did give her the information to call to see if she has a candidate. Will respiratory status she continues use her oxygen with good effect. She continues use her respiratory medicines also with good effect. 04/15/2022 the patient is here for a pulmonary follow-up visit. She continues to do well from a respiratory status. She recently had a hip fracture and did need to have a longer stay at rehab to recover from that. She did very well. She is maintaining her weight which is good. She developed muscle mass and she is feeling better overall. She still has leg weakness and numbness. She will be following up with Neurology soon. She continues use gabapentin. This does help her sleep at nighttime. She also takes a for neuropathy. She needs to continue getting that medication and should be able to get it from her primary care doctor. I will send right now just to make sure she has a. She is also working with her GI doctors. Her inflammatory bowel disease appears to be stable. At nighttime she is using oxygen with good effect. She is also using oxygen with activity with good effect. The oxygen therapy continues to be affecting beneficial. Will follow-up in 6-8 months or sooner if she develops any worsening issues. 10/21/2022 the patient is here for pulmonary follow-up visit. Back in June of this year the patient developed altered mental status. She had a tox screen that was positive for both opiates, benzos and also THC. She was agitated and ultimately intubated for her agitation. She was briefly in the ICU was able to be extubated. She was upset because she does have a DNR order. I did review with her and I added to the chart. The patient continues on respiratory therapy with good response. She continues on the oxygen with activity and sleep. This has been affecting beneficial. We did review her CT scan of the chest that she had while in the hospital. Demonstrated emphysema but otherwise no evidence of any PE or any parenchymal lung disease to be concerned about. She does have other extrapulmonary manifestations such as kidney stones that she is aware of for this point will continue with current respiratory therapy. She is going to avoid marijuana because of the acute delirium. 08/27/2023 the patient is here for pulmonary follow-up visit. The patient is doing well from a respiratory status. She does continue to use the oxygen as prescribed. She has been using her respiratory medications as prescribed. She has been using the Bevespi since she has been NPO budesonide. Although she has been noticing some wheezing. Uuyu-xw-khqxvoxn severity. She has not required any additional medications. She has not been hospitalized recently which is reassuring. She is following closely with GI at [place]. On exam she does have some wheezing. Therefore will go ahead and optimize her respiratory therapy by switching her over to Breztri. if the patient has any new or worsening issues she will call otherwise follow-up in 6 months. [facility] Medical History (Updated 08/27/23 @ 14:47 by Epi Leiva MD) COPD (chronic obstructive pulmonary disease) Neuropathy Insomnia Inflammatory bowel diseases (IBD) Diarrhea Pre-op chest exam Dysphagia Chronic restrictive lung disease Chronic respiratory failure YURI on CPAP Infection due to Stenotrophomonas maltophilia Osteoporosis Colitis Emphysema of lung Surgical History Hx of cholecystectomy S/P complete hysterectomy History of bowel resection Social History Household Members: Other Household Members Other:: granddaughter Patient Tobacco Use Status: Former Tobacco user Tobacco use type: Cigarette Years Smoked: 15 yrs ago Second Hand Smoke Exposure: No Substance Use Type: Marijuana Current occupational status: unemployed Review of Systems Const Denies night sweats and Denies weight loss ENT Denies change in voice, Denies lip swelling, Denies mouth pain, Reports nasal congestion, Reports nasal discharge and Denies tongue swelling Card Denies chest pain and Reports dyspnea on exertion Resp Reports cough, Reports dyspnea on exertion and Reports wheezing GI Reports fecal incontinence and Reports diarrhea Reports nocturia and Reports urinary incontinence Musc Denies no additional complaints, Reports abnormal gait, Reports back pain and Reports myalgias Neuro Denies Neuro-related abnormal movements and Reports abnormal gait Psych Denies no additional complaints Tato/Lymph Denies easy bleeding and Denies lymphadenopathy Aller/Immun Denies lip swelling, Denies tongue swelling and Reports wheezing Physical Exam Vital Signs: Last Vital Signs Pulse 91 08/27/23 14:27 Pulse Ox 93 08/27/23 14:27 Oxygen Delivery Method Room Air 08/27/23 14:27 BMI result Body Mass Index 19.2 Const General: alert Neck Neck: Yes normal visual inspection, Yes full ROM and Yes no lymphadenopathy Chest Chest palpation & inspection: normal inspection of the chest Resp Auscultation: wheezes and diminished lung sounds Cardio Rate: regular rate Rhythm: regular rhythm Heart sounds: S1 normal heart sound present and S2 normal heart sound present GI Palpation (GI): Soft to palpation and nontender Auscultation: normal bowel sounds Skin General skin exam: rashes and/or lesions noted Assessment & Plan Assessment & Plan (1) Chronic restrictive lung disease: Code(s): J98.4 - Other disorders of lung Category: Medical (2) Chronic respiratory failure: Code(s): J96.10 - Chronic respiratory failure, unspecified whether with hypoxia or hypercapnia Category: Medical Qualifiers: Respiratory failure complication: hypoxia Qualified Code(s): J96.11 - Chronic respiratory failure with hypoxia (3) YURI on CPAP: Code(s): G47.33 - Obstructive sleep apnea (adult) (pediatric); Z99.89 - Dependence on other enabling machines and devices Category: Medical (4) COPD (chronic obstructive pulmonary disease): Code(s): J44.9 - Chronic obstructive pulmonary disease, unspecified Category: Medical Qualifiers: COPD type: chronic bronchitis Chronic bronchitis type: simple Qualified Code(s): J41.0 - Simple chronic bronchitis (5) Insomnia: Code(s): G47.00 - Insomnia, unspecified Category: Medical Qualifiers: Insomnia type: primary Qualified Code(s): F51.01 - Primary insomnia Plan stop Bevespi start Breztri DAHIANA as needed Oxygen 2L with activity continue pulmonary rehab when able, PT at home Continue oxygen at nighttime while sleeping F/U 6 months Medications: New miwnbsxnjk-[id number]-[id number] 160-9-4.8 mcg/actuation (Breztri Aerosphere) 2 inhalations inhalation BID 10.7 grams 11RF 30 days albuterol sulfate 2.5 mg (3 mL) inhalation DAILY 90 mL 11RF 30 days J41.0 - Simple chronic bronchitis Refilled albuterol sulfate 90 mcg/actuation 2 puffs inhalation Q4H PRN 8.5 grams 11RF wheezing 30 days Coding Level of Care Code Est Pt Level 4 (82432) Diagnoses Chronic restrictive lung disease J98.4 Chronic respiratory failure with hypoxia J96.11 Respiratory failure complication: hypoxia YURI on CPAP G47.33; Z99.89 Simple chronic bronchitis J41.0 COPD type: chronic bronchitis Chronic bronchitis type: simple Primary insomnia F51.01 Insomnia type: primary Time Spent (min) 16
== END 2023-08-27 14:51 | disposition home or self-care (01) ==
PROVIDERS: PCP Internal Medicine; Visit Provider Hospitalist
DX: J98.4 Other disorders of lung (principal); J96.11 Chronic respiratory failure with hypoxia; G47.33 Obstructive sleep apnea (adult) (pediatric); Z99.89 Dependence on other enabling machines and devices; J41.0 Simple chronic bronchitis; F51.01 Primary insomnia
CPT/HCPCS: 99214

== ENCOUNTER → 2023-08-27 14:18 | Outpatient (BNVA) | payer MEDICARE, MEDICAID, SELFPAY | PROVIDERS: PCP Internal Medicine; Visit Provider Hospitalist | DX: J98.4 Other disorders of lung (principal); J96.11 Chronic respiratory failure with hypoxia; J41.0 Simple chronic bronchitis; G47.33 Obstructive sleep apnea (adult) (pediatric); F51.01 Primary insomnia; Z99.89 Dependence on other enabling machines and devices | CPT/HCPCS: 99212 ==

== ENCOUNTER 2023-12-22 13:26 | Outpatient (AMB) | payer MEDICARE, MEDICAID, SELFPAY ==
--- NOTE | 2023-12-22 13:35 | MHC.OFFVIS ---
Vital Signs 12/22/23 13:38 Height 5 ft 2 in Weight 104 lb BMI 19.0 BP 100/78 Blood Pressure Location Rt brachial Position Sitting Pulse 81 Pulse Source Pulse Oximeter Pulse Oximetry (%) 96 Oxygen Delivery Method Room Air Intake Visit Reasons: INP-Polyneuropathy (Per MD) Intake Note: Patient presents for polyneuropthy Allergies furosemide [From LASIX] Allergy (Intermediate, Verified 12/22/23 13:35) SWEATING lorazepam [LORAZEPAM] Allergy (Intermediate, Verified 12/22/23 13:35) RESTLESS LEG prochlorperazine [From COMPAZINE] Allergy (Intermediate, Verified 12/22/23 13:35) RESTLESS LEG Sulfa (Sulfonamide Antibiotics) [SULFA (SULFONAMIDE ANTIBIOTICS)] Allergy (Mild, Verified 12/22/23 13:35) Hives and Rash HPI Comments Details: 68 year old female referred for Neuropathy, She endorses burning pain and numbness bilaterally in her feet radiating to the knees she was on 900mg of GP and stopped it after she fractured her R. collar bone. She has a history of Parkinsons mother and sister. She denies tremors. She does have jerks in her legs and her arms daily, half of the day. The pain is worse in the feet when standing, fluctuates through the day. She uses voltaran 3-4x day helps a little, still continues to have numbness and intense pain at the balls of the feet bilaterally. GP was causing her to have tactile hallucinations, and more twitching, myoclonus of the limbs. She had surgery on for her back years ago. Denies shooting pain, down her neck. Fell 4x in past 2 years, broke her R.collar bone fell down the stairs. Broke R.hip walking into kitchen lost balance and fell. H/O Crohns and Colitis, diet tends to be liquid based on off weeks. Takes oxycodone 15mg qid GI pain. Doesnt use CPAP, can not tolerate it. She was diagnosed with RLS years ago. Denies walking, talking in her sleep, denies light, noise, smells sensitivity, denies migraines. Memory forgetful of names and daily tasks. Sleep is good naps daily, doesn't do stairs, solemnly drives, feet swell and are painful, worse at night. Repeat EMG has back injury and Brisk Reflexes Will trial her on Duloxetine 10mg PO BID [facility] Medical History (Updated 12/28/23 @ 15:48 by Georgina Ivy MD) Numbness and tingling of both feet COPD (chronic obstructive pulmonary disease) Neuropathy Insomnia Inflammatory bowel diseases (IBD) Diarrhea Pre-op chest exam Dysphagia Chronic restrictive lung disease Chronic respiratory failure YURI on CPAP Infection due to Stenotrophomonas maltophilia Osteoporosis Colitis Emphysema of lung Surgical History Hx of cholecystectomy S/P complete hysterectomy History of bowel resection Social History Household Members: Other Household Members Other:: granddaughter Patient Tobacco Use Status: Former Tobacco user Tobacco use type: Cigarette Years Smoked: 15 yrs ago Second Hand Smoke Exposure: No Substance Use Type: Marijuana Current occupational status: unemployed Review of Systems Const Reports as per HPI Musc Reports numbness and Reports tingling Neuro Reports Neuro-related abnormal movements (Twitching and myoclonus.), Reports numbness, Reports restless legs, Reports tingling and Reports paresthesias (Bilaterally feet to the knees.) Physical Exam Vital Signs: Last Vital Signs Pulse 81 12/22/23 13:38 BP 100/78 12/22/23 13:38 Pulse Ox 96 12/22/23 13:38 Oxygen Delivery Method Room Air 12/22/23 13:38 BMI result Body Mass Index 19.0 Const General: cooperative, comfortable and no acute distress Nutritional Appearance: thin and underweight Orientation/consciousness: patient oriented x3 HEENT Face and sinus: Yes face symmetric Eyes Pupils: Equal, round and reactive pupils present, Pupils normal by confrontation and Pupil accommodation reflex normal Neck Neck: Yes full ROM and Yes supple Resp Effort & Inspection: normal respiratory effort and able to speak in complete sentences Neuro General: patient oriented x3 and moves all extremities Cranial nerves: Yes CN's II-XII intact bilaterally, Yes Equal, round and reactive pupils present and Yes Midline tongue present Gait exam (Neuro): Normal gait present Motor exam (neuro): 5/5 motor strength present throughout Deep tendon reflexes (DTR's): Right triceps reflex intensity grade: 2+, Left triceps reflex intensity grade: 2+, Rt Biceps (C5, C6): 2+, Left biceps reflex intensity grade: 2+, Right brachioradialis reflex intensity grade: 2+, Left brachioradialis reflex intensity grade: 2+, Right patellar reflex intensity grade: 3+, Left patellar reflex intensity grade: 3+, Right ankle reflex intensity grade: 2+ and Left ankle reflex intensity grade: 2+ Coordination: [id number] test normal and rapid alternating movements of the distal upper extremity normal (Slow to open and close hands.) Assessment & Plan Assessment & Plan (1) Neuropathy: Comment: ? restless legs Code(s): G62.9 - Polyneuropathy, unspecified Category: Medical Plan: Patient has COPD use of 2L NC and h/o back surgery. Nerve conduction study needed to evaluate burning in feet bilaterally. Will start patient on Duloxetine 20mg BID Nerve EMG / LE Orders: Orders NE electromyogram (EMG) 12/22/23 R20.0 - Anesthesia of skin, R20.2 - Paresthesia of skin NE nerve conduction velocity 12/22/23 R20.0 - Anesthesia of skin, R20.2 - Paresthesia of skin Medications: New duloxetine 20 mg PO BID 60 caps 1RF Coding Level of Care Code New Pt Level 4 (94038) Complex EM visit Add On G2211 Diagnoses Neuropathy G62.9
[2023-12-22 13:38] VITALS: BP 100/78; PULSE 81; O2SAT 96; BMI 19.0
== END 2023-12-22 14:19 | disposition home or self-care (01) ==
LOC: HO.HSMS 13:27
PROVIDERS: PCP Internal Medicine; Visit Provider Physician Assistant Medical
DX: G62.9 Polyneuropathy, unspecified (principal)
CPT/HCPCS: 99204; G2211

== ENCOUNTER → 2023-12-22 13:26 | Outpatient (BNVA) | payer MEDICARE, MEDICAID, SELFPAY | PROVIDERS: PCP Internal Medicine; Visit Provider Psychiatry & Neurology Neurology | DX: G62.9 Polyneuropathy, unspecified (principal); R20.2 Paresthesia of skin; R20.0 Anesthesia of skin | CPT/HCPCS: 99202 ==

== ENCOUNTER 2024-02-23 10:37 | Outpatient (REF) | payer MEDICARE, MEDICAID, SELFPAY | END 2024-02-23 10:38 | disposition home or self-care (01) | LOC: HO.NEURO 10:37 | PROVIDERS: PCP Student in an Organized Health Care Education/Training Program; Visit Provider Physician Assistant Medical | DX: Z13.89 Encounter for screening for other disorder (principal) ==

== ENCOUNTER 2024-11-06 14:36 | Outpatient (AMB) | payer MEDICARE, MEDICAID, SELFPAY ==
--- NOTE | 2024-11-06 14:38 | MHC.OFFVIS ---
Vital Signs 11/06/24 14:39 Height 5 ft 2 in Weight 111 lb 5.335 oz BMI 20.4 BP 126/74 Blood Pressure Location Lt brachial Position Sitting Pulse 99 Pulse Source Pulse Oximeter Pulse Oximetry (%) 97 Oxygen Delivery Method Nasal Cannula Oxygen Flow Rate 3 Intake Visit Reasons: copd Ultrasound Coordinator Required: No Accompanied by: Self / Same As Patient Allergies furosemide (From LASIX) Allergy (Intermediate, Verified 11/06/24 14:42) SWEATING lorazepam (LORAZEPAM) Allergy (Intermediate, Verified 11/06/24 14:42) RESTLESS LEG prochlorperazine (From COMPAZINE) Allergy (Intermediate, Verified 11/06/24 14:42) RESTLESS LEG Sulfa (Sulfonamide Antibiotics) (SULFA (SULFONAMIDE ANTIBIOTICS)) Allergy (Mild, Verified 11/06/24 14:42) Hives and Rash HPI Comments Details: The patient is a 69 y/o woman with a history of chronic Crohn's disease with multiple complications steroid dependent in addition to COPD. She continues to have dyspnea on exertion. [id number] severity. Does use her inhalers regularly. She does feel the difference if she misses a dose. She did have pulmonary function studies recently demonstrating mild obstructive ventilatory defect as well as a mild restrictive ventilatory defect along with a moderate diffusion impairment. We did also get a CT scan of the chest demonstrating that elevation of the right hemidiaphragm which resulted in her restrictive ventilatory defect along with her worsening dyspnea symptoms. In regards to his sleep apnea the patient is using oxygen at nighttime. She could not tolerate the CPAP. She also has a small portable oxygen concentrator that she uses during the daytime with activity. 03/11/2021 the patient is here for a pulmonary follow-up visit. Overall she is feeling a lot better from a respiratory status. She has been participating very well in pulmonary rehabilitation. Unfortunately she started developing significant pelvic discomfort and abdominal discomfort and she had to stop. She continues with current respiratory therapy. She has not had any exacerbations of her COPD. She has been stable on the current medications. Unfortunate she has had issues with her Crohn's. She continues to have episodes of abdominal pain cramping. She has also has significant weight loss. Now she is dealing with issues with bilateral nephrolithiasis and she is scheduled to undergo lithotripsy. She had this problem now for some time. Back in June she was scheduled to undergo a procedure but developed significant breathing issues. but at this point the patient is doing a lot better. She continues to use her oxygen with activity and sleep. This has been affecting beneficial. The patient is optimized from a respiratory status. She understands that because of her underlying conditions she does have increased risk for perioperative pulmonary complications. the patient is planned to have surgery next week. At this point she is medically optimized and is able to proceed with surgery Under general anesthesia. 08/11/2021 the patient is here for a pulmonary follow-up visit. Since we last spoke she has had a very eventful few months. She did undergo her lithotripsy but then ended up with a complicated UTI. She was admitted to the hospital numerous times. The patient is starting to feel better. She did go to rehabilitation 4. At time. She has lost a lot of muscle mass. She has also lost significant amount of weight. Unfortunately, she is also having issues with her inflammatory bowel disease and diarrhea. She has incontinence of both stool and urine. Along with her respiratory failure this makes it very hard for her to get to a bathroom. She is very embarrassed. she has been having some difficulties getting her adult diapers prescribed. I do believe that she is decompensating physically and appears to have more needs. Recently she did have a bad fall because of the issue of her diarrhea causing significant discomfort. I am concerned about her home safety. I did recommend she can looking to a PACE program. [employer] will be a good option for her. I did give her the information to call to see if she has a candidate. Will respiratory status she continues use her oxygen with good effect. She continues use her respiratory medicines also with good effect. 04/15/2022 the patient is here for a pulmonary follow-up visit. She continues to do well from a respiratory status. She recently had a hip fracture and did need to have a longer stay at rehab to recover from that. She did very well. She is maintaining her weight which is good. She developed muscle mass and she is feeling better overall. She still has leg weakness and numbness. She will be following up with Neurology soon. She continues use gabapentin. This does help her sleep at nighttime. She also takes a for neuropathy. She needs to continue getting that medication and should be able to get it from her primary care doctor. I will send right now just to make sure she has a. She is also working with her GI doctors. Her inflammatory bowel disease appears to be stable. At nighttime she is using oxygen with good effect. She is also using oxygen with activity with good effect. The oxygen therapy continues to be affecting beneficial. Will follow-up in 6-8 months or sooner if she develops any worsening issues. 10/21/2022 the patient is here for pulmonary follow-up visit. Back in June of this year the patient developed altered mental status. She had a tox screen that was positive for both opiates, benzos and also THC. She was agitated and ultimately intubated for her agitation. She was briefly in the ICU was able to be extubated. She was upset because she does have a DNR order. I did review with her and I added to the chart. The patient continues on respiratory therapy with good response. She continues on the oxygen with activity and sleep. This has been affecting beneficial. We did review her CT scan of the chest that she had while in the hospital. Demonstrated emphysema but otherwise no evidence of any PE or any parenchymal lung disease to be concerned about. She does have other extrapulmonary manifestations such as kidney stones that she is aware of for this point will continue with current respiratory therapy. She is going to avoid marijuana because of the acute delirium. 08/27/2023 the patient is here for pulmonary follow-up visit. The patient is doing well from a respiratory status. She does continue to use the oxygen as prescribed. She has been using her respiratory medications as prescribed. She has been using the Bevespi since she has been NPO budesonide. Although she has been noticing some wheezing. Puno-sa-[id number] severity. She has not required any additional medications. She has not been hospitalized recently which is reassuring. She is following closely with GI at [facility]. On exam she does have some wheezing. Therefore will go ahead and optimize her respiratory therapy by switching her over to Breztri. if the patient has any new or worsening issues she will call otherwise follow-up in 6 months. 11/06/2024 the patient is here for pulmonary follow-up visit. Overall she is doing well. Although she has had multiple admissions to the hospital for different things but have resulting worsening shortness of breath. Last time she was admitted for significant anemia with a hemoglobin of 6.8 and she required a transfusion. Another time she was diagnosed with AFib with rapid ventricular response resulting significantly shortness of breath and she was admitted for that. And she continues to be on the oxygen with good effect. She has gotten very weak and she has required rehabilitation many times. But she is actually coming back pretty good. She walked today with a walker and did very good on my 6 minute walk test with her. She maintain a pulse ox of 95% on 3 L pulse. She was able to stay within 95% at room air at rest. Which is reassuring. She will continue to use the oxygen she can monitor her oxygen at home as well to keep her oxygen between 92-96%. She could not get the bed by see anymore so therefore will put him back on Breztri. She tolerates the Breztri well. The patient will start exercising at the [facility]. She will follow-up in 6 months. If she has any issues prior to this she will call for an earlier assessment. [facility] Medical History (Updated 12/28/23 @ 15:48 by Georgina Ivy MD) Numbness and tingling of both feet COPD (chronic obstructive pulmonary disease) Neuropathy Insomnia Inflammatory bowel diseases (IBD) Diarrhea Pre-op chest exam Dysphagia Chronic restrictive lung disease Chronic respiratory failure YURI on CPAP Infection due to Stenotrophomonas maltophilia Osteoporosis Colitis Emphysema of lung Surgical History Hx of cholecystectomy S/P complete hysterectomy History of bowel resection Social History Household Members: Other Household Members Other:: granddaughter Patient Tobacco Use Status: Former Tobacco user Tobacco use type: Cigarette Years Smoked: 15 yrs ago Second Hand Smoke Exposure: No Substance Use Type: Marijuana Current occupational status: unemployed Review of Systems Const Denies night sweats and Denies weight loss ENT Denies change in voice, Denies lip swelling, Denies mouth pain, Reports nasal congestion, Reports nasal discharge and Denies tongue swelling Card Denies chest pain and Reports dyspnea on exertion Resp Reports cough, Reports dyspnea on exertion and Reports wheezing GI Reports fecal incontinence and Reports diarrhea Reports nocturia and Reports urinary incontinence Musc Denies no additional complaints, Reports abnormal gait, Reports back pain and Reports myalgias Neuro Denies Neuro-related abnormal movements and Reports abnormal gait Psych Denies no additional complaints Tato/Lymph Denies easy bleeding and Denies lymphadenopathy Aller/Immun Denies lip swelling, Denies tongue swelling and Reports wheezing Physical Exam Vital Signs: Last Vital Signs Pulse 99 11/06/24 14:39 BP 126/74 11/06/24 14:39 Pulse Ox 97 11/06/24 14:39 Oxygen Delivery Method Nasal Cannula 11/06/24 14:39 Oxygen Flow Rate 3 11/06/24 14:39 BMI result Body Mass Index 20.4 Const General: alert Neck Neck: Yes normal visual inspection, Yes full ROM and Yes no lymphadenopathy Chest Chest palpation & inspection: normal inspection of the chest Resp Effort & Inspection: normal respiratory effort Auscultation: no wheezes and diminished lung sounds Cardio Rate: regular rate Rhythm: regular rhythm Heart sounds: S1 normal heart sound present and S2 normal heart sound present GI Palpation (GI): Soft to palpation and nontender Auscultation: normal bowel sounds Skin General skin exam: rashes and/or lesions noted Assessment & Plan Assessment & Plan (1) Chronic restrictive lung disease: Code(s): J98.4 - Other disorders of lung Category: Medical (2) Chronic respiratory failure: Code(s): J96.10 - Chronic respiratory failure, unspecified whether with hypoxia or hypercapnia Category: Medical Qualifiers: Respiratory failure complication: hypoxia Qualified Code(s): J96.11 - Chronic respiratory failure with hypoxia (3) YURI on CPAP: Code(s): G47.33 - Obstructive sleep apnea (adult) (pediatric); Z99.89 - Dependence on other enabling machines and devices Category: Medical (4) COPD (chronic obstructive pulmonary disease): Code(s): J44.9 - Chronic obstructive pulmonary disease, unspecified Category: Medical Qualifiers: COPD type: chronic bronchitis Chronic bronchitis type: simple Qualified Code(s): J41.0 - Simple chronic bronchitis (5) Insomnia: Code(s): G47.00 - Insomnia, unspecified Category: Medical Qualifiers: Insomnia type: primary Qualified Code(s): F51.01 - Primary insomnia Plan stop Bevespi start Breztri DAHIANA as needed Oxygen 2L with activity continue pulmonary rehab, on line Continue oxygen at nighttime while sleeping F/U 6 months Medications: Refilled lyogttxlmn-cwwyxqtw-tsruugdgue 160-9-4.8 mcg/actuation (Breztri Aerosphere) 2 inhalations inhalation BID 10.7 grams 11RF 30 days Coding Level of Care Code Est Pt Level 4 (73617) Complex EM visit Add On G2211 Diagnoses Chronic restrictive lung disease J98.4 Chronic respiratory failure with hypoxia J96.11 Respiratory failure complication: hypoxia YURI on CPAP G47.33; Z99.89 Simple chronic bronchitis J41.0 COPD type: chronic bronchitis Chronic bronchitis type: simple Primary insomnia F51.01 Insomnia type: primary Time Spent (min) 17
[2024-11-06 14:39] VITALS: BP 126/74; PULSE 99; O2SAT 97; BMI 20.4
== END 2024-11-06 15:12 | disposition home or self-care (01) ==
LOC: HO.HPS 14:37
PROVIDERS: PCP Student in an Organized Health Care Education/Training Program; Visit Provider Hospitalist
DX: J98.4 Other disorders of lung (principal); J96.11 Chronic respiratory failure with hypoxia; G47.33 Obstructive sleep apnea (adult) (pediatric); Z99.89 Dependence on other enabling machines and devices; J41.0 Simple chronic bronchitis; F51.01 Primary insomnia
CPT/HCPCS: 99214; G2211

== ENCOUNTER → 2024-11-06 14:36 | Outpatient (BNVA) | payer MEDICARE, MEDICAID, SELFPAY | PROVIDERS: PCP Student in an Organized Health Care Education/Training Program; Visit Provider Hospitalist | DX: J98.4 Other disorders of lung (principal); J96.11 Chronic respiratory failure with hypoxia; J41.0 Simple chronic bronchitis; F51.01 Primary insomnia; G47.33 Obstructive sleep apnea (adult) (pediatric); Z99.89 Dependence on other enabling machines and devices | CPT/HCPCS: 99212 ==

== ENCOUNTER 2024-12-11 13:23 | Outpatient (AMB) | payer MEDICARE, MEDICAID, SELFPAY ==
--- NOTE | 2024-12-11 13:30 | A.OFFVIS_ITS ---
Vital Signs 12/11/24 13:31 Height 5 ft 2 in Weight 121 lb BMI 22.1 BP 120/82 Blood Pressure Location Rt brachial Position Sitting Pulse 93 Pulse Source Pulse Oximeter Pulse Oximetry (%) 96 Oxygen Delivery Method Nasal Cannula Intake Visit Reasons: Follow up Intake Note: Patient presents follow up polyneuropathy. EMG in chart Orthopedic Technician Required: No Accompanied by: Self / Same As Patient Allergies furosemide (From LASIX) Allergy (Intermediate, Verified 12/11/24 13:31) SWEATING lorazepam (LORAZEPAM) Allergy (Intermediate, Verified 12/11/24 13:31) RESTLESS LEG prochlorperazine (From COMPAZINE) Allergy (Intermediate, Verified 12/11/24 13:31) RESTLESS LEG Sulfa (Sulfonamide Antibiotics) (SULFA (SULFONAMIDE ANTIBIOTICS)) Allergy (Mild, Verified 12/11/24 13:31) Hives and Rash HPI Comments Details: 69 year old female referred for Neuropathy, and refractory RLS. She denies falls in the past 6 months is on 2L of oxygen on nasal cannula. She endorses burning pain and numbness bilaterally in her feet radiating to the knees she discontinued Gabapentin due lack of efficacy as she was taking 900mg po daily at bedtime. She was diagnosed with RLS years ago. She has a + fh history of Parkinsons mother and sister. She denies tremors. She does have jerks in her legs and her arms daily, half of the day, was unable to complete EMG/NCS due to ulcerated sores. The pain is worse in the feet when standing, fluctuates through the day. She uses voltaran 3-4x day helps a little, still continues to have numbness and intense pain at the balls of the feet bilaterally. GP was causing her to have tactile hallucinations, and more twitching, myoclonus of the limbs. She had surgery on for her back years ago. She has shooting pain, l. side down her neck. H/O Crohns and Colitis, diet tends to be liquid based. Takes suboxone, buprenorphine -naloxone 8-2mg qid. Doesnt use CPAP, can not tolerate it. Denies REM behaviors, denies sleep walking and or talking in her sleep. Denies migraines. She started having wierd, vivid and anxiety inducing dreams with anger since starting suboxone. Memory is okay, she is forgetful of names and daily tasks. Sleep is good naps daily for 1.5 hours, doesn't do stairs, and her feet swell, and are painful, worse at night. Home health aide 3x a week, to assist with all ADLS, cleaning, shopping laundry, bathing dressing as needed. 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 Osteoporosis Colitis Emphysema of lung Surgical History Hx of cholecystectomy S/P complete hysterectomy History of bowel resection Social History Household Members: Other Household Members Other:: granddaughter Patient Tobacco Use Status: Former Tobacco user Tobacco use type: Cigarette Years Smoked: 15 yrs ago Second Hand Smoke Exposure: No Substance Use Type: Marijuana Current occupational status: unemployed Physical Exam Vital Signs: Last Vital Signs Pulse 93 12/11/24 13:31 BP 120/82 12/11/24 13:31 Pulse Ox 96 12/11/24 13:31 Oxygen Delivery Method Nasal Cannula 12/11/24 13:31 BMI result Body Mass Index 22.1 Const General: cooperative, comfortable and no acute distress Nutritional Appearance: thin and underweight Orientation/consciousness: patient oriented x3 HEENT Face and sinus: Yes face symmetric Eyes Pupils: Equal, round and reactive pupils present, Pupils normal by confrontation and Pupil accommodation reflex normal Neck Neck: Yes full ROM and Yes supple Resp Effort & Inspection: normal respiratory effort and able to speak in complete sentences Neuro General: patient oriented x3 and moves all extremities Cranial nerves: Yes CN's II-XII intact bilaterally, Yes Equal, round and reactive pupils present and Yes Midline tongue present Gait exam (Neuro): Normal gait present Motor exam (neuro): 5/5 motor strength present throughout Deep tendon reflexes (DTR's): Right triceps reflex intensity grade: 2+, Left triceps reflex intensity grade: 2+, Rt Biceps (C5, C6): 2+, Left biceps reflex intensity grade: 2+, Right brachioradialis reflex intensity grade: 2+, Left brachioradialis reflex intensity grade: 2+, Right patellar reflex intensity grade: 3+, Left patellar reflex intensity grade: 3+, Right ankle reflex intensity grade: 2+ and Left ankle reflex intensity grade: 2+ Coordination: [id number] test normal and rapid alternating movements of the distal upper extremity normal (Slow to open and close hands.) Results Reviewed Results Reviewed: labs Assessment & Plan Assessment & Plan (1) Neuropathy: Comment: RLS Code(s): G62.9 - Polyneuropathy, unspecified Category: Medical (2) Numbness and tingling of both feet: Code(s): R20.0 - Anesthesia of skin; R20.2 - Paresthesia of skin Category: Medical (3) Sleep difficulties: Code(s): G47.9 - Sleep disorder, unspecified Category: Medical (4) Insomnia: Code(s): G47.00 - Insomnia, unspecified Category: Medical Qualifiers: Insomnia type: primary Qualified Code(s): F51.01 - Primary insomnia (5) Periodic limb movements of sleep: Code(s): G47.61 - Periodic limb movement disorder Category: Medical (6) Mood disorder: Code(s): F39 - Unspecified mood [affective] disorder Category: Medical (7) Neuropathic pain of left shoulder: Code(s): M79.2 - Neuralgia and neuritis, unspecified Category: Medical (8) Restless leg syndrome, familial, uncontrolled: Code(s): G25.81 - Restless legs syndrome Category: Medical Plan Patient has COPD use of 2L of O2 on NC and h/o back surgery. Nerve conduction study needed to evaluate burning in feet bilaterally, due to open sores on r. heel unable to to do that foot, will assess the left foot. EMG with NCS LE bilateral order written however will do the left foot first as she has a history of RLS and failed treatment with Gabapentin 900mg po at bedtime from 06/2022 to 12/2023. Will trial pt on Nidra by [facility] for refractory RLS Labs are pending to r/o deficiencies and anemias. will request recent labs from her pcp to compare results. Will try pt on Nidra by [facility]. Tonic Motor Activation - she does not have a seizure disorder or implantable devices such as pacemakers which would make this therapy a CI for use. Mood irritability with depression and anxiety continue Duloxetine 20mg po BID, though pt states she is now taking 30mg po BID. Sleep disturbances continue Mirtazapine 7.5mg po daily at bedtime. 25 lbs weight gain in 2 months. Home health aid 3x a week Visiting Nurse aide 3x a week Orders: Orders NE nerve conduction velocity Today G62.9 - Polyneuropathy, unspecified, R20.0 - Anesthesia of skin, R20.2 - Paresthesia of skin Complete Blood Count no Diff Today F51.01 - Primary insomnia, G47.9 - Sleep disorder, unspecified Hemoglobin A1c Today F51.01 - Primary insomnia, G47.9 - Sleep disorder, unspecified Methylmalonic Acid Today F51.01 - Primary insomnia, G47.9 - Sleep disorder, unspecified, R53.83 - Other fatigue Homocysteine Today F51.01 - Primary insomnia, G47.9 - Sleep disorder, unspecified, R53.83 - Other fatigue Vitamin D 25-OH Total Today F51.01 - Primary insomnia, G47.9 - Sleep disorder, unspecified Vitamin B12 and Folate Today F51.01 - Primary insomnia, G47.9 - Sleep disorder, unspecified TSH reflex Free T4 Today F51.01 - Primary insomnia, G47.9 - Sleep disorder, unspecified Magnesium Today F51.01 - Primary insomnia, G47.9 - Sleep disorder, unspecified IRON PROFILE Today G25.81 - Restless legs syndrome, G47.9 - Sleep disorder, unspecified, M79.2 - Neuralgia and neuritis, unspecified, R53.83 - Other fatigue NE electromyogram (EMG) Today G62.9 - Polyneuropathy, unspecified, R20.0 - Ane sthesia of skin, R20.2 - Paresthesia of skin Comprehensive Met. Panel Today F51.01 - Primary insomnia, G47.9 - Sleep disorder, unspecified Ferritin Today F51.01 - Primary insomnia, G47.9 - Sleep disorder, unspecified Vitamin B6 Today F51.01 - Primary insomnia, G47.9 - Sleep disorder, unspecified Medications: New lidocaine 5% leave on most painful area for up to 12 hrs 3 patches topical DAILY 15 ea 2RF shoulder pain 3 months MDD one patch daily G62.9 - Polyneuropathy, unspecified, M79.2 - Neuralgia and neuritis, unspecified [NIDRA] As directed 2 ea 0RF G25.81 - Restless legs syndrome, M79.2 - Neuralgia and neuritis, unspecified Changed From cyanocobalamin (vitamin B-12) ER (Vitamin B-12 ER) 2,000 mcg PO DAILY G62.9 - Polyneuropathy, unspecified, R20.0 - Anesthesia of skin, R20.2 - Paresthesia of skin To cyanocobalamin (vitamin B-12) ER (Vitamin B-12 ER) 2,000 mcg PO DAILY 90 tabs 3RF 3 months MDD 2000mcg G62.9 - Polyneuropathy, unspecified, R20.0 - Anesthesia of skin, R20.2 - Paresthesia of skin From magnesium oxide 400 mg PO BID G47.9 - Sleep disorder, unspecified, G62.9 - Polyneuropathy, unspecified To magnesium oxide 400 mg PO BID 180 caps 0RF sleep difficulties 3 months MDD 800mg G47.9 - Sleep disorder, unspecified, G62.9 - Polyneuropathy, unspecified From duloxetine 20 mg PO BID 60 caps 1RF F39 - Unspecified mood [affective] disorder To duloxetine take 20mg po twice a day. 20 mg PO BID 180 caps 1RF mood irritability 3 months MDD 40mg F39 - Unspecified mood [affective] disorder Patient Instructions: Sleep Hygiene provided: set a scheduled bedtime and wake time to help regulate the circadian rhythm and balance the release of pituitary hormones. Sleep in a dark room, temperatures below 68 degrees, and no devices n bed. Limit caffeinated products 6 hours prior to bed, and limit fluids 2-4 hours prior to bed. Gentle night yoga, diffusing essential oils, and playing soft music can be relaxing. Coding Level of Care Code Est Pt Level 4 (04846) Diagnoses Neuropathy G62.9 Numbness and tingling of both feet R20.0; R20.2 Sleep difficulties G47.9 Primary insomnia F51.01 Insomnia type: primary Periodic limb movements of sleep G47.61 Mood disorder F39 Neuropathic pain of left shoulder M79.2 Restless leg syndrome, familial, uncontrolled G25.81
[2024-12-11 13:31] VITALS: BP 120/82; PULSE 93; O2SAT 96; BMI 22.1
== END 2024-12-11 14:26 | disposition home or self-care (01) ==
LOC: HO.HSMS 13:24
PROVIDERS: PCP Student in an Organized Health Care Education/Training Program; Visit Provider Physician Assistant Medical
DX: G62.9 Polyneuropathy, unspecified (principal); R20.0 Anesthesia of skin; R20.2 Paresthesia of skin; G47.9 Sleep disorder, unspecified; F51.01 Primary insomnia; G47.61 Periodic limb movement disorder; F39 Unspecified mood [affective] disorder; M79.2 Neuralgia and neuritis, unspecified; G25.81 Restless legs syndrome
CPT/HCPCS: 99214

== ENCOUNTER → 2024-12-11 13:23 | Outpatient (BNVA) | payer OTHER, SELFPAY | PROVIDERS: PCP Student in an Organized Health Care Education/Training Program; Visit Provider Physician Assistant Medical | DX: G62.9 Polyneuropathy, unspecified (principal); R20.0 Anesthesia of skin; R20.2 Paresthesia of skin; G25.81 Restless legs syndrome; F39 Unspecified mood [affective] disorder; F51.01 Primary insomnia; G47.9 Sleep disorder, unspecified; Z79.899 Other long term (current) drug therapy; M79.2 Neuralgia and neuritis, unspecified; J44.9 Chronic obstructive pulmonary disease, unspecified; Z99.81 Dependence on supplemental oxygen; Z87.891 Personal history of nicotine dependence | CPT/HCPCS: 99212 ==